=== PATIENT | female | born 1945 | race Asian ===

== ENCOUNTER 2018-03-06 00:32 | Emergency (ER) | payer MEDICARE, OTHER, SELFPAY ==
[2018-03-06 00:44] VITALS: BP 132/86; PULSE 61; RESP 18; TEMP 36.8; O2SAT 100
--- NOTE | 2018-03-06 00:49 | ED.ABDPAIN ---
HPI - Abdominal Pain General Chief Complaint: Abdominal Pain Stated Complaint: ABDOMINAL PAIN Time Seen by Provider: 03/06/18 00:41 Source: patient Mode of arrival: ambulatory Limitations: no limitations History of Present Illness HPI narrative: 72-year-old female here for evaluation of left lower quadrant abdominal pain. Patient states that she has had this pain for approximately [address] scan ordered by her primary doctor earlier this year for this pain. She states that she was told that ???everything was okay ???with regard to the CT scan. She states that she has seen a GI provider in the past for this pain. She states that she was told by this GI provider that she should be on a laxative. She states that she was on MiraLax for a while and her symptoms improved but then she stopped the MiraLax and now the symptoms are back. Related Data Home Medications Medication Instructions Recorded Confirmed amitriptyline 25 mg PO HS #0 09/03/16 calcium citrate-vitamin D3 1 tab PO #0 09/03/16 [Citracal + D Petites] cetirizine 10 mg PO QDAYP PRN #0 09/03/16 fluticasone [Flonase Allergy 1 spray INTRANASAL QDAY #0 09/03/16 Relief] levothyroxine 25 mcg PO QAM #0 09/03/16 losartan 50 mg PO QDAY #0 09/03/16 metoprolol tartrate 50 mg PO BID #0 09/03/16 simvastatin 20 mg PO HS #0 09/03/16 Allergies Allergy/AdvReac Type Severity Reaction Status Date / Time acetaminophen Allergy Unknown Verified 03/06/18 00:47 [From DARVOCET-N] propoxyphene Allergy Unknown Verified 03/06/18 00:47 [From DARVOCET-N] Review of Systems Constitutional Denies chills, Denies fever(s), Denies lethargy and Denies weakness Cardiovascular Denies chest pain, Denies irregular heart rhythm, Denies lightheadedness, Denies palpitations, Denies dyspnea, Denies dyspnea on exertion and Denies orthopnea Respiratory Denies cough, Denies dyspnea, Denies dyspnea on exertion and Denies wheezing Gastrointestinal Gastrointestinal: Reports abdominal pain, Reports belching, Denies melena, Reports bloating, Reports change in bowel habits, Denies change in stool character, Reports constipation, Reports heartburn, Denies diarrhea, Denies nausea and Denies vomiting Genitourinary Denies hematuria, Denies flank pain, Denies urinary incontinence and Denies urinary urgency Integumentary/Breasts Denies pruritus, Denies erythema, Denies rash and Denies wounds Neurologic Denies weakness Endocrine Denies palpitations Hematologic/Lymphatic Denies easy bruising Allergic/Immunologic Denies wheezing Exam Const General: cooperative and well developed Nutritional Appearance: well nourished Orientation: alert, awake, oriented x3 and not confused Chest Chest: normal inspection of the chest Resp Effort & Inspection: normal respiratory effort, able to speak in complete sentences, no respiratory distress and no use of accessory muscles Auscultation: clear to auscultation bilaterally, no rales, no rhonchi and no wheezes Cardio Rate: regular rate Rhythm: regular rhythm Heart Sounds: no click, no gallops, no murmurs and no rubs Pulses: normal peripheral pulses GI Inspection: normal to inspection and non-distended Palpation: soft, no hepatosplenomegaly, No firm, No guarding, No pulsatile mass and No tender Skin General: no rashes or lesions noted, No jaundice and No petechiae MDM - Abdominal Pain MDM Narrative Medical decision making narrative: I reviewed the patient's CT scan from December 11, 2017. She states that she had this scan for the evaluation of her presenting abdominal pain today. The CT scan shows a thickening of the gastric antrum also shows diverticulosis without diverticulitis and no evidence of appendicitis. After long discussion with the patient she stated that she did get better with MiraLax in the past. She states that she feels like she is constipated. She states she is drinking ???a bunch??? of water at home but then only has small bowel movements. She states that she has had to change her diet recently secondary to the amount of ???gas??? that she has been getting. She is currently on omeprazole. Initially she thought that this was a laxative. We discussed this medication and would was used for. After my evaluation with her. Reviewing her prior CT scan, and the long discussion we had will hold on further workup for now. We discussed MiraLax and its use. I recommended to her that since MiraLax seem to improve her symptoms in the past that she should go back on this medication. We did discuss that it could potentially cause diarrhea and if this happened that she could just back off on its use until she felt like she was constipated again and then start the medication again. Informed her that she needed to follow up with her primary care doctor. She expressed understanding. We discussed return precautions. She expressed agreement with plan Course Last Vital Signs Temp 98.2 F 03/06/18 00:44 Pulse 61 03/06/18 00:44 Resp 18 03/06/18 00:44 BP 132/86 H 03/06/18 00:44 Pulse Ox 100 03/06/18 00:44 Discharge Plan Departure Patient Disposition: Home, Self-Care Clinical Impression: Abdominal pain, Constipation Instructions: Constipation (Alternative Therapy), Constipation, DI for Abdominal Pain-Adult Activity Restrictions/Additional Instructions: I recommend that you start taking the MiraLax again like we discussed. Call your primary care doctor for a follow-up. Return to the emergency department for any new or worsening symptoms Prescriptions: No Action metoprolol tartrate 50 MG tablet 50 mg PO BID Qty: 0 RF: 0 cetirizine 10 MG tablet 10 mg PO QDAYP PRNQty: 0 RF: 0 levothyroxine 25 MCG tablet 25 mcg PO QAM Qty: 0 RF: 0 amitriptyline 25 MG tablet 25 mg PO HS Qty: 0 RF: 0 simvastatin 20 MG tablet 20 mg PO HS Qty: 0 RF: 0 fluticasone [Flonase Allergy Relief] 9.9 ML spray,suspension 1 spray Intranasal QDAY Qty: 0 RF: 0 losartan 50 MG tablet 50 mg PO QDAY Qty: 0 RF: 0 calcium citrate-vitamin D3 [Citracal + D Petites] 950 MG/250 IU tablet 1 tab PO Qty: 0 RF: 0
== END 2018-03-06 01:25 | disposition home or self-care (01) ==
PROVIDERS: Emergency Provider Emergency Medicine
DX: R10.9 Unspecified abdominal pain (principal); K59.00 Constipation, unspecified
CPT/HCPCS: 99282

== ENCOUNTER → 2020-04-06 10:45 | Outpatient (CLI) | payer MEDICARE, OTHER, SELFPAY ==
--- NOTE | 2020-04-06 10:50 | DI.RAD.S_ITS ---
PROCEDURE: XR KNEE RT 3V INDICATIONS: Progressive right knee pain with swelling TECHNIQUE: 3 views of the knee were acquired. COMPARISON: None. FINDINGS: Bones: No fractures or dislocations. No suspicious bony lesions. Minimal to mild medial and lateral compartment narrowing, mild to moderate patellofemoral compartment narrowing. Periventricular osteophytes are present. No erosions. Soft tissues: Mild joint effusion. No suspicious soft tissue calcifications. IMPRESSION: Mild effusion with tricompartmental degenerative changes suggestive osteoarthritis. Dictated by: Tara Finney M.D. on 04/06/2020 at 16:44 Approved by: Tara Finney M.D. on 04/06/2020 at 16:45
[2020-04-06 11:59] LABS: Hemoglobin A1C% w Est Avg Glu 6.5 % (4.0-6.0)
[2020-04-06 12:24] LABS: Alanine Aminotransferase 41 IU/L (<35); Albumin 4.6 g/dL (3.5-5.0); Albumin Globulin Ratio 1.4 (1.0-2.8); Alkaline Phosphatase 84 U/L (38-126); Aspartate Aminotransferase 39 IU/L (14-36); BUN Creatinine Ratio 21.1 (6-22); Bilirubin Total 1.1 mg/dL (0.2-1.3); Blood Urea Nitrogen 16 mg/dL (7-17); Calcium 10.1 mg/dL (8.4-10.2); Carbon Dioxide 28 mmol/L (22-32); Chloride 101 mmol/L (98-107); Estimated Glomerular Filt Rate > 60.0 mL/min (>60); Globulin 3.2 g/dL (1.7-4.1); Glucose 109 mg/dL (80-110); HEMOLYSIS < 15 (0-50); Potassium 4.4 mmol/L (3.4-5.1); Sodium 138 mmol/L (137-145); Total Protein 7.8 g/dL (6.3-8.2); Uric Acid 6.4 mg/dL (2.5-6.2)
[2020-04-06 12:56] LABS: TSH w/ Reflex to FT4 2.94 uIU/mL (0.47-4.68)
== END ==
PROVIDERS: PCP Family Medicine; Referring Provider Family Medicine; Visit Provider Family Medicine
DX: M25.561 Pain in right knee (principal); E11.9 Type 2 diabetes mellitus without complications
CPT/HCPCS: 36415; 73562; 80053; 83036; 84443; 84550

== ENCOUNTER → 2020-10-18 09:08 | Outpatient (CLI) | payer MEDICARE, OTHER, SELFPAY ==
--- NOTE | 2020-10-18 09:10 | DI.MG.S_ITS ---
BILATERAL DIGITAL SCREENING MAMMOGRAM 3D/2D WITH CAD: 10/18/2020 CLINICAL: Routine screening. Comparison is made to exams dated: 04/30/2016 mammogram, 04/19/2014 mammogram, and 07/02/2012 mammogram - outside location. The tissue of both breasts is predominantly fatty. Current study was also evaluated with a Computer Aided Detection (CAD) system. No significant masses, calcifications, or other findings are seen in either breast. There has been no significant interval change. IMPRESSION: NEGATIVE There is no mammographic evidence of malignancy. A 1 year screening mammogram is recommended. This exam was interpreted at Station ID: [id number]. NOTE: For mammograms, a report in lay terms will be sent to the patient. Approximately 15% of breast malignancies will not be visualized mammographically. In the management of a palpable breast mass, a negative mammogram must not discourage biopsy of a clinically suspicious lesion. Electronically Signed By: Luis Alberto Garcia acr/jarrod:10/18/2020 10:33:44 letter sent: Normal Exam ACR BI-RADS Category 1: Negative [id number]
[2020-10-18 09:50] LABS: Hemoglobin A1C% w Est Avg Glu 6.5 % (4.0-6.0)
[2020-10-18 10:00] LABS: Alanine Aminotransferase 44 IU/L (<35); Albumin 4.7 g/dL (3.5-5.0); Albumin Globulin Ratio 1.5 (1.0-2.8); Alkaline Phosphatase 80 U/L (38-126); Aspartate Aminotransferase 45 IU/L (14-36); BUN Creatinine Ratio 19.7 (6-22); Bilirubin Total 0.7 mg/dL (0.2-1.3); Blood Urea Nitrogen 15 mg/dL (7-17); Calcium 10.1 mg/dL (8.4-10.2); Carbon Dioxide 32 mmol/L (22-32); Chloride 102 mmol/L (98-107); Cholesterol 197 mg/dL (140-199); Estimated Glomerular Filt Rate > 60.0 mL/min (>60); Globulin 3.1 g/dL (1.7-4.1); Glucose 139 mg/dL (80-110); HDL Cholesterol 48 mg/dL (40-60); HEMOLYSIS < 15 (0-50); LDL Cholesterol Calculated 99 mg/dL (<100); Potassium 4.1 mmol/L (3.4-5.1); Sodium 139 mmol/L (137-145); Total Protein 7.8 g/dL (6.3-8.2); Triglycerides 250 mg/dL (35-150)
== END ==
PROVIDERS: PCP Family Medicine; Referring Provider Family Medicine; Visit Provider Family Medicine
DX: Z12.31 Encounter for screening mammogram for malignant neoplasm of breast (principal); Z13.29 Encounter for screening for other suspected endocrine disorder; C50.919 Malignant neoplasm of unspecified site of unspecified female breast; E11.9 Type 2 diabetes mellitus without complications; E78.5 Hyperlipidemia, unspecified; I27.20 Pulmonary hypertension, unspecified; I10 Essential (primary) hypertension
CPT/HCPCS: 36415; 77063; 77067; 80053; 80061; 83036; 84443

== ENCOUNTER 2021-05-25 21:54 | Emergency (ER) | payer MEDICARE, OTHER, SELFPAY ==
[2021-05-25] VITALS (7 sets, daily range): BP systolic 148–163; BP diastolic 61–99; PULSE 67–75; RESP 16; TEMP 37.1; O2SAT 96–99; BMI 29.2
[2021-05-25 22:19] LABS: Add Manual Diff / Slide Review NO; Basophils Absolute Auto 0 /uL (0-100); Basophils Percent Auto 0.3 % (0-2); Eosinophils Absolute Auto 100 /uL (0-450); Eosinophils Percent Auto 0.9 % (2-4); Hematocrit 43.2 % (36-46); Hemoglobin 14.4 g/dL (12.0-16.0); Lymphocytes Absolute Auto 1800 /uL (1100-4500); Lymphocytes Percent Auto 16.2 % (25-40); Mean Corpuscular HGB Conc 33.3 % (30-36); Mean Corpuscular Hemoglobin 30.1 PG (26-34); Mean Corpuscular Volume 90.2 fL (80-100); Monocytes Absolute Auto 800 /uL (0-900); Monocytes Percent Auto 7.6 % (3-14); Neutrophils Absolute Auto 8200 /uL (1500-7000); Platelet Count 238 X10^3/uL (150-400); Red Blood Cell Count 4.79 X10^6/uL (4.0-5.2); Red Cell Distribution Width 13.4 % (11.6-14.8); White Blood Cell Count 10.9 X10^3/uL (4.5-11.0)
--- NOTE | 2021-05-25 22:21 | DI.RAD.S_ITS ---
PROCEDURE: XR ACUTE ABDOMEN SERIES INDICATIONS: abdominal pain TECHNIQUE: One view chest and two views of the abdomen were acquired. COMPARISON: None. FINDINGS: Surgical changes and devices: None. Chest: Lungs are clear. Heart size is normal. No pleural effusions. No pneumoperitoneum. Abdomen: Bowel gas pattern is normal. No suspicious calcifications. Visualized solid organ contours appear normal. Bones: No suspicious bony lesions. IMPRESSION: No acute process. Concordant with preliminary interpretation. Dictated by: Anat De Anda M.D. on 05/26/2021 at 7:32 Approved by: Anat De Anda M.D. on 05/26/2021 at 7:33
[2021-05-25 22:22] LABS: Prothrombin Time 11.3 SECONDS (10.1-12.7)
[2021-05-25 22:24] LABS: PTT Partial Thromboplastin Tim 31 SECONDS (26.4-36.2)
[2021-05-25 22:25] LABS: Alanine Aminotransferase 27 IU/L (<35); Albumin 4.2 g/dL (3.5-5.0); Albumin Globulin Ratio 1.4 (1.0-2.8); Alkaline Phosphatase 71 U/L (38-126); Aspartate Aminotransferase 31 IU/L (14-36); BUN Creatinine Ratio 14.8 (6-22); Bilirubin Total 1.2 mg/dL (0.2-1.3); Blood Urea Nitrogen 12 mg/dL (7-17); Calcium 9.5 mg/dL (8.4-10.2); Carbon Dioxide 28 mmol/L (22-32); Chloride 101 mmol/L (98-107); Estimated Glomerular Filt Rate > 60.0 mL/min (>60); Glucose 196 mg/dL (80-110); HEMOLYSIS 23 (0-50); Lipase 40 U/L (23-300); Potassium 3.7 mmol/L (3.4-5.1); Sodium 138 mmol/L (137-145); Total Protein 7.2 g/dL (6.3-8.2)
--- NOTE | 2021-05-25 23:18 | ED_ITS ---
HPI - Abdominal Pain General Chief Complaint: Abdominal Pain Stated Complaint: ABD PAIN X3 DAYS Time Seen by Provider: 05/25/21 22:04 Source: patient and family Mode of arrival: Wheelchair Limitations: no limitations History of Present Illness HPI narrative: 75-year-old woman with a history of hypertension, hyperlipidemia, diabetes, gout, seasonal allergies. She has had her appendix removed but still has her gallbladder in place. She presents with diffuse abdominal pain she reports no flatus for the last 3 days of feeling that she has got quite a bit of gas in the upper portion of her abdomen. She notes that she did have 2 bowel movements this morning that did not relieve her symptoms. She denies vomiting or diarrhea. No fevers, cough, chest pain, dyspnea, orthopnea, change in neurologic status. Related Data Home Medications Medication Instructions Recorded Confirmed calcium citrate 200 mg 1 tab PO #0 09/03/16 11/07/20 calcium-vitamin D3 6.25 mcg (250 unit) tablet (Citracal-D3 Petites) Previous Rx's Medication Instructions Recorded amitriptyline 25 mg tablet 25 mg PO HS #90 tab 04/06/20 esomeprazole magnesium 20 mg 20 mg PO DAILY #90 cap 04/06/20 capsule,delayed release (Nexium) fluticasone propionate 50 1 spray INTRANASAL QDAY #15.8 ml 04/06/20 mcg/actuation nasal spray,suspension (Flonase Allergy Relief) levothyroxine 25 mcg tablet 25 mcg PO QAM #90 tab 04/06/20 terbinafine HCl 250 mg tablet 250 mg PO DAILY #90 tab 04/06/20 allopurinol 100 mg tablet 100 mg PO DAILY #90 tab 07/13/20 colchicine 0.6 mg tablet 0.6 mg PO DAILY #20 tab 10/15/20 metoprolol succinate 100 mg 100 mg PO DAILY #90 tab 11/21/20 tablet,extended release 24 hr cetirizine 10 mg tablet 10 mg PO DAILY PRN #90 tab 12/12/20 losartan 50 mg tablet See Rx Instructions .ROUTE 12/14/20 .COMPLEX #90 tab metformin 500 mg tablet,extended 500 mg PO DAILY #90 tab 02/06/21 release 24 hr rosuvastatin 20 mg tablet See Rx Instructions .ROUTE 02/20/21 .COMPLEX #90 tab Allergies Allergy/AdvReac Type Severity Reaction Status Date / Time acetaminophen Allergy Intermediate Rash Verified 07/13/20 10:10 [From DARVOCET-N] propoxyphene Allergy Intermediate Rash Verified 07/13/20 10:10 [From DARVOCET-N] Review of Systems Review of Systems Narrative: Remainder of complete review of systems is otherwise unremarkable except for that included in the HPI. Patient History Medical History Abnormal Pap smear of cervix Chronic back pain Fungal toenail infection GERD (gastroesophageal reflux disease) Gout Hyperlipidemia Hypertension Hypothyroidism Lung cancer (~1995) Osteoarthritis Peptic ulcer disease Pulmonary hypertension Right knee pain Sleep apnea Type 2 diabetes mellitus Surgical History Anesthesia History of appendectomy History of section History of heart bypass surgery History of hysterectomy History of removal of cyst Hx of LASIK Family History Father Cancer Mother Hypertension Stroke Brother Hypertension Brother History of emphysema Sister Cancer Family/Other Hypertension Mental health problem Social History Smoking Status: Former smoker Tobacco: How many years used: 10 quit status: has quit before alcohol intake: current substance use type: marijuana Smoking Status: Former smoker alcohol intake frequency: 0-2 drinks per day Substance Use Type: does not use Exam Narrative Exam Narrative: General: Older-appearing woman in no acute distress. Able to give a complete history. HEENT: Moist mucous membranes, normal sclera with reactive pupils, Respiratory: Lungs are clear to auscultation, no wheezing no rales no rhonchi. Full and symmetrical air movement Cardiac: Regular rate and rhythm no murmurs no bruits Abdomen: Soft, mildly distended and mild tenderness in the upper quadrants without specific tenderness over the gallbladder, good bowel tones, no flank p ain Skin: Warm and dry, no rashes Neurologic: Grossly neurologically intact with no obvious asymmetries or abnormalities Extremities: No trauma, well perfused Psych: Cooperative, fluent speech and appropriate eye contact Initial Vital Signs Initial Vital Signs: Vital Signs Temperature 98.8 F 05/25/21 22:10 Pulse Rate 75 05/25/21 22:10 Respiratory Rate 16 05/25/21 22:10 Blood Pressure 163/99 H 07/31/21 22:10 Pulse Oximetry 98 05/25/21 22:10 Course Orders Ordered: ED Orders 05/25/21 22:06 Complete Blood Count AUTO DIFF Stat Comprehensive Metabolic Panel Stat Lipase Stat Partial Thromboplastin Time Stat Prothrombin Time INR Stat 05/25/21 22:11 EKG-12 Lead Stat 05/25/21 22:21 XR acute abdomen series Stat 05/25/21 23:21 CT abdomen pelvis w con Stat 05/25/21 23:28 Urinalysis and Microscopic Stat Discontinued Medications Magnesium Citrate (Magnesium Citrate 300 Ml Solution) 300 ml PO NOW ONE Stop: 05/26/21 00:34 Last Admin: 05/26/21 00:40 Dose: 300 ml Documented by: SATISH Vital Signs Vital signs: Vital Signs - 8 hr 05/25/21 22:10 05/25/21 22:15 05/25/21 22:37 Temperature 98.8 F Pulse Rate 75 70 72 Respiratory Rate 16 Blood Pressure 163/99 H Pulse Oximetry 98 99 97 05/25/21 23:00 05/25/21 23:29 05/25/21 23:30 Temperature Pulse Rate 67 70 70 Respiratory Rate Blood Pressure 148/74 H Pulse Oximetry 96 98 99 05/25/21 23:39 05/26/21 00:00 05/26/21 00:30 Temperature Pulse Rate 72 64 66 Respiratory Rate Blood Pressure 161/61 H 144/66 H Pulse Oximetry 99 98 97 MDM - Abdominal Pain Lab Data Result diagrams: 05/25/21 22:06 05/25/21 22:06 Labs: Lab Results 05/25/21 05/25/21 05/25/21 Range/Units 22:06 22:06 22:06 WBC 10.9 (4.5-11.0) X10^3/uL RBC 4.79 (4.0-5.2) X10^6/uL Hgb 14.4 (12.0-16.0) g/dL Hct 43.2 (36-46) % MCV 90.2 (80-100) fL MCH 30.1 (26-34) PG MCHC 33.3 (30-36) % RDW 13.4 (11.6-14.8) % Plt Count 238 (150-400) X10^3/uL Neut % (Auto) 75.0 (50-75) % Lymph % (Auto) 16.2 L (25-40) % [place] % (Auto) 7.6 (3-14) % Eos % (Auto) 0.9 L (2-4) % Baso % (Auto) 0.3 (0-2) % Neut # (Auto) 8200 H (2128-2659) /uL Lymph # (Auto) 1800 (0100-9248) /uL [place] # (Auto) 800 (0-900) /uL Eos # (Auto) 100 (0-450) /uL Baso # (Auto) 0 (0-100) /uL PT 11.3 (10.1-12.7) SECONDS INR 1.0 (0.9-1.3) APTT 31 (26.4-36.2) SECONDS Sodium 138 (137-145) mmol/L Potassium 3.7 (3.4-5.1) mmol/L Chloride 101 (98-107) mmol/L Carbon Dioxide 28 (22-32) mmol/L BUN 12 (7-17) mg/dL Creatinine 0.81 (0.52-1.04) mg/dL Estimated GFR > 60.0 (>60) mL/min BUN/Creatinine Ratio 14.8 (6-22) Glucose 196 H (80-110) mg/dL Calcium 9.5 (8.4-10.2) mg/dL Total Bilirubin 1.2 (0.2-1.3) mg/dL AST 31 (14-36) IU/L ALT 27 (<35) IU/L Alkaline Phosphatase 71 (38-126) U/L Total Protein 7.2 (6.3-8.2) g/dL Albumin 4.2 (3.5-5.0) g/dL Globulin 3.0 (1.7-4.1) g/dL Albumin/Globulin Ratio 1.4 (1.0-2.8) Lipase 40 (23-300) U/L Urine Color Urine Appearance Urine pH (4.5-8.0) Ur Specific [place] (1.000-1.035) Urine Protein (Negative) Urine Glucose (UA) (Negative) g/dL Urine Ketones (NEGATIVE) Urine Occult Blood (Negative) Urine Nitrate (Negative) Urine Bilirubin (NEGATIVE) Urine Urobilinogen (0.2) E.U./dL Ur Leukocyte Esterase (NEGATIVE) Urine RBC (0-5/HPF) Urine WBC (0-5/HPF) Urine Bacteria (None) Ur Culture Indicated? 05/25/21 Range/Units 23:28 WBC (4.5-11.0) X10^3/uL RBC (4.0-5.2) X10^6/uL Hgb (12.0-16.0) g/dL Hct (36-46) % MCV (80-100) fL MCH (26-34) PG MCHC (30-36) % RDW (11.6-14.8) % Plt Count (150-400) X10^3/uL Neut % (Auto) (50-75) % Lymph % (Auto) (25-40) % [place] % (Auto) (3-14) % Eos % (Auto) (2-4) % Baso % (Auto) (0-2) % Neut # (Auto) (8500-0182) /uL Lymph # (Auto) (6115-0477) /uL [place] # (Auto) (0-900) /uL Eos # (Auto) (0-450) /uL Baso # (Auto) (0-100) /uL PT (10.1-12.7) SECONDS INR (0.9-1.3) APTT (26.4-36.2) SECONDS Sodium (137-145) mmol/L Potassium (3.4-5.1) mmol/L Chloride (98-107) mmol/L Carbon Dioxide (22-32) mmol/L BUN (7-17) mg/dL Creatinine (0.52-1.04) mg/dL Estimated GFR (>60) mL/min BUN/Creatinine Ratio (6-22) Glucose (80-110) mg/dL Calcium (8.4-10.2) mg/dL Total Bilirubin (0.2-1.3) mg/dL AST (14-36) IU/L ALT (<35) IU/L Alkaline Phosphatase (38-126) U/L Total Protein (6.3-8.2) g/dL Albumin (3.5-5.0) g/dL Globulin (1.7-4.1) g/dL Albumin/Globulin Ratio (1.0-2.8) Lipase (23-300) U/L Urine Color Yellow Urine Appearance Clear Urine pH 6.0 (4.5-8.0) Ur Specific [place] <=1.005 (1.000-1.035) Urine Protein Negative (Negative) Urine Glucose (UA) Negative (Negative) g/dL Urine Ketones Negative (NEGATIVE) Urine Occult Blood Trace-intact (Negative) Urine Nitrate Negative (Negative) Urine Bilirubin Negative (NEGATIVE) Urine Urobilinogen 0.2 (0.2) E.U./dL Ur Leukocyte Esterase Trace H (NEGATIVE) Urine RBC 0-1/hpf (0-5/HPF) Urine WBC 0-1/hpf (0-5/HPF) Urine Bacteria None seen (None) Ur Culture Indicated? Cult not indicated Imaging Data X-ray acute abdominal series: My Impression: Normal chest, nonspecific bowel gas pattern, no small-bowel obstruction Radiologist's Impression: Bowel gas scattered in abdomen or pelvis within normal limits no distension mild fecal retention. No definitive acute cardiopulmonary pathology. Nidal Dabbasi CT scan - abdomen/pelvis: Radiologist's Impression: Impression Suspect acute cholecystitis. No stones evident on CT. Right upper quadrant ult rasound can be performed to confirm cholelithiasis acute cholecystitis Kaitlynn Mario MD MDM Narrative Medical decision making narrative: Woman presents with abdominal pain that has continued over the last number of days. Lab work is reassuring with no evidence of acute infection pancreatitis. Acute abdominal series does not suggest significant cardiopulmonary abnormalities, no pneumothorax. CT scan of the abdomen is equally reassuring with no life-threatening pathology including cholecystitis, pancreatitis, bowel or ureter obstructions, colitis or evidence of ischemic colitis. Unfortunately there is not an obvious explanation for her abdominal pain. In reviewing findings with patient she does note that she has had a lifelong problem with constipation and wonders if using daily prune juice and eating tamarins is safe. I highly encouraged increased fiber and using food to help her body function as efficiently as possible. . At this point with no life-threatening issues identified, will suggest that s he try magnesium citrate to completely clean her bowels and see if this helps alleviate her pain. If it does then problems are improved and if not then she will need to follow-up with her primary care physician to continue her workup. She is safe for home discharge at this time 1:51 am [address]ology report from CT scan is received. Patient was discharged at 12:48 a.m. In reviewing radiology studies, I had accidentally interpreted the read from the acute abdominal series as though it was the CT scan read. Patient was discharged home as above. After the actual CT scan is reviewed patient is michelle gayle. She still is not having specific right upper quadrant pain. With her exam, she did not have specific right upper quadrant tenderness (Tan sign) and she has a normal white blood cell count and LFTs. At time of discharge I was not suspicious for acute cholecystitis. The CT read is shared with the patient. She would still like to try the magnesium citrate but if her pain continues after that she will return to the emergency department and we can proceed with rechecking blood work and follow-up with an abdominal ultrasound to see if this is, in fact, acute cholecystitis. Discharge Plan Departure Patient Disposition: Home Clinical Impression: Constipation Qualifiers: Constipation type: unspecified constipation type Qualified Code(s): K59.00 - Constipation, unspecified Abdominal pain Qualifiers: Abdominal location: generalized Qualified Code(s): R10.84 - Generalized abdominal pain Instructions: DI for Constipation Activity Restrictions/Additional Instructions: Thank you for coming in today Your workup was very reassuring. There are no acute medical problems to explain the abdominal pain that you are experiencing. You do not have any masses, tumors, obstructions or abdominal infections. You do have quite a bit of stool throughout your colon and may be that you need to clean all of this stool out and get your colon Functioning a bit more efficiently. I am sending you home with a bottle of magnesium citrate. Please drink the entire bottle tomorrow and expect to have quite a bit of stool following that. If you are still having pain and symptoms after that please follow-up with your primary care physician. I wish you the best Prescriptions: No Action calcium citrate-vitamin D3 [Citracal-D3 Petites] 950 MG/250 IU tablet 1 tab PO Qty: 0 RF: 0 colchicine 0.6 mg tablet 0.6 mg PO DAILY Qty: 20 RF: 1 metoprolol succinate 100 mg tablet extended release 24 hr 100 mg PO DAILY Qty: 90 RF: 2 cetirizine 10 mg tablet 10 mg PO DAILY PRN (Reason: allergy symptoms) Qty: 90 RF: 4 losartan 50 mg tablet See Rx Instructions .ROUTE .COMPLEX Qty: 90 RF: 2 metformin 500 mg tablet extended release 24 hr 500 mg PO DAILY Qty: 90 RF: 2 rosuvastatin 20 mg tablet See Rx Instructions .ROUTE .COMPLEX Qty: 90 RF: 1 amitriptyline 25 mg tablet 25 mg PO HS Qty: 90 RF: 1 fluticasone propionate [Flonase Allergy Relief] 50 mcg/actuation spray,ayla pension 1 spray Intranasal QDAY Qty: 15.8 RF: 1 levothyroxine 25 mcg tablet 25 mcg PO QAM Qty: 90 RF: 1 esomeprazole magnesium [Nexium] 20 mg capsule,delayed release(DR/EC) 20 mg PO DAILY Qty: 90 RF: 1 terbinafine HCl 250 mg tablet 250 mg PO DAILY Qty: 90 RF: 1 allopurinol 100 mg tablet 100 mg PO DAILY Qty: 90 RF: 3 Referrals: Marquis Bennett, [Primary Care Provider] -
--- NOTE | 2021-05-25 23:21 | DI.CT.S_ITS ---
PROCEDURE: CT ABDOMEN PELVIS W CON INDICATIONS: abdominal pain TECHNIQUE: After the administration of intravenous contrast, axial sections acquired from the lung bases to the pubic symphysis. Coronal and sagittal reformats were performed. For radiation dose reduction, the following was used: automated exposure control, adjustment of mA and/or kV according to patient size. COMPARISON: [facility], CT, ABDOMEN/PELVIS WITH CONTRAST, 12/11/2017, 12:39. FINDINGS: Image quality: Excellent. Lung bases: Unremarkable. Heart: No significant findings. ABDOMEN: Liver: Unremarkable. Gallbladder: Gallbladder wall is moderately thickened and there is mild surrounding fat stranding, new since the prior examination. Biliary ducts: Unremarkable. Pancreas: Unremarkable. Spleen: Unremarkable. Adrenal Glands: Unremarkable. Kidneys and Ureters: Unremarkable. Stomach and Bowel: Stomach, small bowel loops, and colon are unremarkable. Diverticulosis of the descending and sigmoid colon. No evidence of acute diverticulitis. Appendix is not seen. No evidence of appendicitis. Peritoneum: No abnormal intraperitoneal fluid. No free air. Ventral Wall: No hernias. Abdominal Nodes: No retroperitoneal or mesenteric adenopathy by size criteria. Vessels: Aorta and inferior vena cava are normal in size. PELVIS: Pelvic Organs: Unremarkable. Bladder: Unremarkable. Pelvic Nodes: No enlarged lymph nodes. Miscellaneous: No hernias are seen. Bones: Unremarkable. IMPRESSION: 1. Acute cholecystitis. 2. Concordant with preliminary interpretation. Dictated by: Anat De Anda M.D. on 05/26/2021 at 7:39 Approved by: Anat De Anda M.D. on 05/26/2021 at 7:41
[2021-05-25 23:38] LABS: Bacteria Urine None Seen
[2021-05-25 23:40] LABS: Appearance Urine UA CLEAR; Bilirubin Urine UA NEGATIVE (NEGATIVE); Color Urine UA YELLOW; Glucose Urine UA NEGATIVE (Negative); Ketones Urine UA NEGATIVE (NEGATIVE); Leukocyte Esterase Urine UA TRACE (NEGATIVE); Nitrite Urine UA NEGATIVE (Negative); Occult Blood Urine UA TRACE-INTACT (Negative); Protein Urine UA NEGATIVE (Negative); Specific Gravity Urine UA <=1.005 (1.000-1.035); Urobilinogen Urine UA 0.2 E.U./dL (0.2)
[2021-05-25 23:56] LABS: Culture Indicated Urine Cult Not Indicated; RBC Urine 0-1/HPF (0-5/HPF); WBC Urine 0-1/HPF (0-5/HPF)
[2021-05-26] VITALS: BP 144/66; PULSE 64; O2SAT 98
[2021-05-26 00:30] VITALS: PULSE 66; O2SAT 97
[2021-05-26] MEDS: MAGNESIUM CITRATE 300 ML SOLUTION PO (00:40)
== END 2021-05-26 00:48 | disposition home or self-care (01) ==
PROVIDERS: Emergency Provider Emergency Medicine; PCP Family Medicine
DX: K59.00 Constipation, unspecified (principal); R10.84 Generalized abdominal pain
CPT/HCPCS: 36415; 74022; 74177; 80053; 81001; 83690; 85025; 85610; 85730; 93005; 99284; Q9967

== ENCOUNTER 2021-05-27 09:22 | Emergency (ER) | payer MEDICARE, OTHER, SELFPAY ==
[2021-05-27 10:15] VITALS: BP 152/74; PULSE 72; RESP 14; TEMP 36.2; O2SAT 99; BMI 29.2
--- NOTE | 2021-05-27 10:20 | DI.US.S_ITS ---
PROCEDURE: US ABDOMEN LIMITED INDICATIONS: RIGHT UPPER QUADRANT PAIN TECHNIQUE: Real-time focused scanning was performed of the abdomen, with image documentation. COMPARISON: [facility], CT, CT ABDOMEN PELVIS W CON, 05/25/2021, 23:29. FINDINGS: On the previous CT, there was gallbladder wall thickening and gallbladder wall edema, highly consistent with acute cholecystitis. By CT, the gallbladder wall measured approximately 8 mm. On the current ultrasound, the gallbladder wall is no longer edematous in appearance. It is mildly thickened, measuring up to 3.5 mm in thickness. No stones. No pain on examination. Liver echo pattern is mildly increased, and somewhat heterogeneous. Visualized portions of the pancreas are unremarkable. IMPRESSION: The constellation of findings, when viewed in conjunction to the previous CT, suggests improving acalculous cholecystitis. Dictated by: Jong Patterson M.D. on 05/27/2021 at 11:34 Approved by: Jong Patterson M.D. on 05/27/2021 at 11:37
[2021-05-27 10:38] LABS: Add Manual Diff / Slide Review NO; Basophils Absolute Auto 100 /uL (0-100); Basophils Percent Auto 0.9 % (0-2); Eosinophils Absolute Auto 100 /uL (0-450); Eosinophils Percent Auto 1.7 % (2-4); Hematocrit 44.8 % (36-46); Hemoglobin 15.1 g/dL (12.0-16.0); Lymphocytes Absolute Auto 2000 /uL (1100-4500); Mean Corpuscular HGB Conc 33.7 % (30-36); Mean Corpuscular Hemoglobin 30.5 PG (26-34); Mean Corpuscular Volume 90.5 fL (80-100); Monocytes Absolute Auto 700 /uL (0-900); Monocytes Percent Auto 9.6 % (3-14); Neutrophils Absolute Auto 4400 /uL (1500-7000); Neutrophils Percent Auto 59.8 % (50-75); Platelet Count 243 X10^3/uL (150-400); Red Blood Cell Count 4.95 X10^6/uL (4.0-5.2); Red Cell Distribution Width 13.6 % (11.6-14.8); White Blood Cell Count 7.3 X10^3/uL (4.5-11.0)
[2021-05-27 10:54] LABS: Alanine Aminotransferase 31 IU/L (<35); Albumin 4.6 g/dL (3.5-5.0); Albumin Globulin Ratio 1.4 (1.0-2.8); Alkaline Phosphatase 78 U/L (38-126); Aspartate Aminotransferase 43 IU/L (14-36); Bilirubin Total 1.3 mg/dL (0.2-1.3); Blood Urea Nitrogen 13 mg/dL (7-17); Calcium 9.7 mg/dL (8.4-10.2); Carbon Dioxide 27 mmol/L (22-32); Chloride 104 mmol/L (98-107); Estimated Glomerular Filt Rate > 60.0 mL/min (>60); Globulin 3.3 g/dL (1.7-4.1); Glucose 133 mg/dL (80-110); HEMOLYSIS 49 (0-50); Lipase 30 U/L (23-300); Potassium 4.1 mmol/L (3.4-5.1); Sodium 139 mmol/L (137-145); Total Protein 7.9 g/dL (6.3-8.2)
[2021-05-27 13:41] LABS: Bacteria Urine None Seen; RBC Urine None Seen (0-5/HPF)
[2021-05-27 13:44] LABS: Appearance Urine UA CLEAR; Bilirubin Urine UA NEGATIVE (NEGATIVE); Color Urine UA YELLOW; Glucose Urine UA NEGATIVE (Negative); Ketones Urine UA NEGATIVE (NEGATIVE); Leukocyte Esterase Urine UA TRACE (NEGATIVE); Nitrite Urine UA NEGATIVE (Negative); Occult Blood Urine UA TRACE-LYSED (Negative); Protein Urine UA TRACE (Negative); Urobilinogen Urine UA 0.2 E.U./dL (0.2)
[2021-05-27 13:46] LABS: pH Urine UA 5.5 (4.5-8.0)
[2021-05-27 14:02] LABS: Culture Indicated Urine Cult Not Indicated; Mucus Urine 1+ (Negative); Squamous Epithelial Cell Urine 0-1 /HPF (0-5/HPF); Transitional Epi Cells Urine 0-1/HPF (0-5/HPF); WBC Urine 1-5/HPF (0-5/HPF)
--- NOTE | 2021-05-27 14:48 | ED_ITS ---
HPI - Abdominal Pain <Britney Oleary, REVENUE INTEGRITY ANALYST-BC - Last Filed: 05/27/21 18:35> General Chief Complaint: Abdominal Pain Stated Complaint: gall bladder issues, bloating, no improvement Time Seen by Provider: 05/27/21 14:03 Source: patient and family Mode of arrival: Ambulatory Limitations: no limitations History of Present Illness HPI narrative: The patient is a 75-year-old female former smoker with history of GERD, hypertension, breast CA, pulmonary hypertension and prediabetes who presents with her daughter Isa for chief complaint of continued right upper quadrant pain. She was seen and evaluated at this facility yesterday for a chief complaint of abdominal pain, not moving gas for 3 days. Her lab work was reassuring, imaging was reassuring at that time, the patient was discharged with magnesium citrate. After she was discharge, the patient CT report was received and was concerning for possible acute cholecystitis. The patient was contacted, but did not want to come back to the emergency department at that time. She wanted to see if the magnesium citrate would help her pain and decided that she would come back if it did not help. She drinker magnesium citrate, had multiple bowel movements but still had persistent right upper quadrant pain so she came back to the emergency department today. She states that she has had right upper quadrant pain since Thursday, denies any fevers nausea vomiting. She complains of chronic constipation and gas. She has been vaccinated events coronavirus with two [employer] vaccinations. Related Data Home Medications Medication Instructions Recorded Confirmed calcium citrate 200 mg 1 tab PO #0 09/03/16 11/07/20 calcium-vitamin D3 6.25 mcg (250 unit) tablet (Citracal-D3 Petites) Previous Rx's Medication Instructions Recorded amitriptyline 25 mg tablet 25 mg PO HS #90 tab 04/06/20 esomeprazole magnesium 20 mg 20 mg PO DAILY #90 cap 04/06/20 capsule,delayed release (Nexium) fluticasone propionate 50 1 spray INTRANASAL QDAY #15.8 ml 04/06/20 mcg/actuation nasal spray,suspension (Flonase Allergy Relief) levothyroxine 25 mcg tablet 25 mcg PO QAM #90 tab 04/06/20 terbinafine HCl 250 mg tablet 250 mg PO DAILY #90 tab 04/06/20 allopurinol 100 mg tablet 100 mg PO DAILY #90 tab 07/13/20 colchicine 0.6 mg tablet 0.6 mg PO DAILY #20 tab 10/15/20 metoprolol succinate 100 mg 100 mg PO DAILY #90 tab 11/21/20 tablet,extended release 24 hr cetirizine 10 mg tablet 10 mg PO DAILY PRN #90 tab 12/12/20 losartan 50 mg tablet See Rx Instructions .ROUTE 12/14/20 .COMPLEX #90 tab metformin 500 mg tablet,extended 500 mg PO DAILY #90 tab 02/06/21 release 24 hr rosuvastatin 20 mg tablet See Rx Instructions .ROUTE 02/20/21 .COMPLEX #90 tab amoxicillin 875 mg-potassium 1 tab PO BID #20 tab 05/27/21 clavulanate 125 mg tablet (Augmentin) hydrocodone 5 mg-acetaminophen 325 1 tab PO Q4-6H PRN #7 tab 05/27/21 mg tablet ondansetron 4 mg disintegrating 4 mg PO Q6H PRN #14 tab 05/27/21 tablet Allergies Allergy/AdvReac Type Severity Reaction Status Date / Time propoxyphene Allergy Intermediate Rash Verified 05/27/21 10:19 [From SPRING] Review of Systems <ALLIE Russ - Last Filed: 05/27/21 18:35> Review of Systems Narrative: GENERAL: Denies chills, fatigue, malaise, fever, sweats. HEENT: Denies sinus pain, ear pain, sore throat, difficulty swallowing, dizziness. RESPIRATORY: Denies dyspnea, cough, wheezing, hemoptysis, sputum. CARDIOVASCULAR: Denies chest pain, palpitations, orthopnea, edema, GASTROINTESTINAL: see HPI : Denies dysuria, frequency, incontinence, hematuria, urinary retention. MUSCULOSKELETAL: denies weakness, joint pain, or bony pain SKIN: Denies rash, skin lesions, or other NEUROLOGIC: Denies weakness, headache, numbness, change in speech, confusion, seizures, incoordination. PSYCHIATRIC: No concerning psychosocial issues. 12 point review of systems is negative except for those stated above Patient History <ALLIE Russ - Last Filed: 05/27/21 18:35> Medical History Abnormal Pap smear of cervix Chronic back pain Fungal toenail infection GERD (gastroesophageal reflux disease) Gout Hyperlipidemia Hypertension Hypothyroidism Lung cancer (~1995) Osteoarthritis Peptic ulcer disease Pulmonary hypertension Right knee pain Sleep apnea Type 2 diabetes mellitus Surgical History Anesthesia History of appendectomy History of section History of heart bypass surgery History of hysterectomy History of removal of cyst Hx of LASIK Family History Father Cancer Mother Hypertension Stroke Brother Hypertension Brother History of emphysema Sister Cancer Family/Other Hypertension Mental health problem Social History Smoking Status: Former smoker Tobacco: How many years used: 10 quit status: has quit before alcohol intake: current substance use type: marijuana Smoking Status: Former smoker alcohol intake frequency: 0-2 drinks per day Substance Use Type: does not use Exam <Britney ALEC OlearyP-BC - Last Filed: 05/27/21 18:35> Narrative Exam Narrative: GENERAL: This is a well-nourished, well-developed patient, in No acute distress lying on stretcher HEAD: Atraumatic. Normocephalic. No temporal or scalp tenderness. EYES: Pupils equal round and reactive. Extraocular motions intact. No scleral icterus. No injection or drainage. ENT: Nose without bleeding, purulent drainage or septal hematoma. Throat without erythema, tonsillar hypertrophy or exudate. Uvula midline. Airway patent. NECK: Trachea midline. No JVD or lymphadenopathy. Supple, nontender, no menin geal signs. CARDIOVASCULAR: Regular rate and rhythm without murmurs, gallops, or rubs. RESPIRATORY: Clear to auscultation. Breath sounds equal bilaterally. No wheezes, rales, or rhonchi. GASTROINTESTINAL: Abdomen soft, right upper quadrant pain to palpation with slight guarding, otherwise no pain to palpation. Active bowel sounds. EXTREMITIES: No clubbing, cyanosis, or edema. No joint tenderness, effusion, or edema noted. BACK: Nontender without deformity or crepitance. No flank tenderness. NEURO: AOx3. SKIN: No rash or erythema. Initial Vital Signs Initial Vital Signs: Vital Signs Temperature 97.1 F L 05/27/21 10:15 Pulse Rate 72 05/27/21 10:15 Respiratory Rate 14 05/27/21 10:15 Blood Pressure 152/74 H 05/27/21 10:15 Pulse Oximetry 99 05/27/21 10:15 <Britney Reyes DO - Last Filed: 05/28/21 19:37> Initial Vital Signs Initial Vital Signs: Vital Signs Temperature 97.1 F L 05/27/21 10:15 Pulse Rate 72 05/27/21 10:15 Respiratory Rate 14 05/27/21 10:15 Blood Pressure 152/74 H 05/27/21 10:15 Pulse Oximetry 99 05/27/21 10:15 Scores <ALLIE Russ - Last Filed: 05/27/21 18:35> GCS [place] coma scale eye opening: Spontaneous [place] coma scale verbal response: Orientated [place] coma scale motor response: Obey commands [place] coma scale total score: 15 <Britney Reyes DO - Last Filed: 05/28/21 19:37> GCS [place] coma scale total score: 15 Course <ALLIE Russ - Last Filed: 05/27/21 18:35> Orders Ordered: Discontinued Medications Amoxicillin/Clavulanate Potassium (Amoxicillin/Clav 875/125 Mg) 1 tab PO NOW ONE Stop: 05/27/21 15:21 Last Admin: 05/27/21 15:33 Dose: 1 tab Documented by: TARAS Vital Signs Vital signs: Vital Signs - 8 hr 05/27/21 14:53 05/27/21 16:17 Pulse Rate 60 61 Respiratory Rate 16 16 Blood Pressure 146/63 H 158/79 H Pulse Oximetry 100 100 <Britney Reyes DO - Last Filed: 05/28/21 19:37> Orders Ordered: Discontinued Medications Amoxicillin/Clavulanate Potassium (Amoxicillin/Clav 875/125 Mg) 1 tab PO NOW ONE Stop: 05/27/21 15:21 Last Admin: 05/27/21 15:33 Dose: 1 tab Documented by: TARAS Vital Signs Vital signs: Vital Signs - 8 hr 05/27/21 14:53 05/27/21 16:17 Pulse Rate 60 61 Respiratory Rate 16 16 Blood Pressure 146/63 H 158/79 H Pulse Oximetry 100 100 MDM - Abdominal Pain <ALLIE Russ - Last Filed: 05/27/21 18:35> Differential Diagnosis Differential diagnosis: Likely abdominal pain, acute appendicitis, constipation and other Lab Data Attestation: I reviewed the patient's lab results. Result diagrams: 05/27/21 10:25 05/27/21 10:25 Labs: Lab Results 05/27/21 05/27/21 05/27/21 Range/Units 10:16 10:25 10:25 WBC 7.3 (4.5-11.0) X10^3/uL RBC 4.95 (4.0-5.2) X10^6/uL Hgb 15.1 (12.0-16.0) g/dL Hct 44.8 (36-46) % MCV 90.5 (80-100) fL MCH 30.5 (26-34) PG MCHC 33.7 (30-36) % RDW 13.6 (11.6-14.8) % Plt Count 243 (150-400) X10^3/uL Neut % (Auto) 59.8 (50-75) % Lymph % (Auto) 28.0 (25-40) % [place] % (Auto) 9.6 (3-14) % Eos % (Auto) 1.7 L (2-4) % Baso % (Auto) 0.9 (0-2) % Neut # (Auto) 4400 (9525-4959) /uL Lymph # (Auto) 2000 (9725-9790) /uL Garrard # (Auto) 700 (0-900) /uL Eos # (Auto) 100 (0-450) /uL Baso # (Auto) 100 (0-100) /uL Sodium 139 (137-145) mmol/L Potassium 4.1 (3.4-5.1) mmol/L Chloride 104 (98-107) mmol/L Carbon Dioxide 27 (22-32) mmol/L BUN 13 (7-17) mg/dL Creatinine 0.81 (0.52-1.04) mg/dL Estimated GFR > 60.0 (>60) mL/min BUN/Creatinine Ratio 16.0 (6-22) Glucose 133 H (80-110) mg/dL Calcium 9.7 (8.4-10.2) mg/dL Total Bilirubin 1.3 (0.2-1.3) mg/dL AST 43 H (14-36) IU/L ALT 31 (<35) IU/L Alkaline Phosphatase 78 (38-126) U/L Total Protein 7.9 (6.3-8.2) g/dL Albumin 4.6 (3.5-5.0) g/dL Globulin 3.3 (1.7-4.1) g/dL Albumin/Globulin Ratio 1.4 (1.0-2.8) Lipase 30 (23-300) U/L Urine Color Yellow Urine Appearance Clear Urine pH 5.5 (4.5-8.0) Ur Specific [place] 1.010 (1.000-1.035) Urine Protein Trace H (Negative) Urine Glucose (UA) Negative (Negative) g/dL Urine Ketones Negative (NEGATIVE) Urine Occult Blood Trace-lysed (Negative) Urine Nitrate Negative (Negative) Urine Bilirubin Negative (NEGATIVE) Urine Urobilinogen 0.2 (0.2) E.U./dL Ur Leukocyte Esterase Trace H (NEGATIVE) Urine RBC None seen (0-5/HPF) Urine WBC 1-5/hpf (0-5/HPF) Ur Squamous Epith Cells 0-1 /hpf (0-5/HPF) Ur Transition Epith Cell 0-1/hpf (0-5/HPF) Urine Bacteria None seen (None) Urine Mucus 1+ H (Negative) Ur Culture Indicated? Cult not indicated SARS-CoV-2 (PCR) (Negative) 05/27/21 Range/Units 14:14 WBC (4.5-11.0) X10^3/uL RBC (4.0-5.2) X10^6/uL Hgb (12.0-16.0) g/dL Hct (36-46) % MCV (80-100) fL MCH (26-34) PG MCHC (30-36) % RDW (11.6-14.8) % Plt Count (150-400) X10^3/uL Neut % (Auto) (50-75) % Lymph % (Auto) (25-40) % [place]arrard % (Auto) (3-14) % Eos % (Auto) (2-4) % Baso % (Auto) (0-2) % Neut # (Auto) (6354-9649) /uL Lymph # (Auto) (5120-6125) /uL Garrard # (Auto) (0-900) /uL Eos # (Auto) (0-450) /uL Baso # (Auto) (0-100) /uL Sodium (137-145) mmol/L Potassium (3.4-5.1) mmol/L Chloride (98-107) mmol/L Carbon Dioxide (22-32) mmol/L BUN (7-17) mg/dL Creatinine (0.52-1.04) mg/dL Estimated GFR (>60) mL/min BUN/Creatinine Ratio (6-22) Glucose (80-110) mg/dL Calcium (8.4-10.2) mg/dL Total Bilirubin (0.2-1.3) mg/dL AST (14-36) IU/L ALT (<35) IU/L Alkaline Phosphatase (38-126) U/L Total Protein (6.3-8.2) g/dL Albumin (3.5-5.0) g/dL Globulin (1.7-4.1) g/dL Albumin/Globulin Ratio (1.0-2.8) Lipase (23-300) U/L Urine Color Urine Appearance Urine pH (4.5-8.0) Ur Specific [place] (1.000-1.035) Urine Protein (Negative) Urine Glucose (UA) (Negative) g/dL Urine Ketones (NEGATIVE) Urine Occult Blood (Negative) Urine Nitrate (Negative) Urine Bilirubin (NEGATIVE) Urine Urobilinogen (0.2) E.U./dL Ur Leukocyte Esterase (NEGATIVE) Urine RBC (0-5/HPF) Urine WBC (0-5/HPF) Ur Squamous Epith Cells (0-5/HPF) Ur Transition Epith Cell (0-5/HPF) Urine Bacteria (None) Urine Mucus (Negative) Ur Culture Indicated? SARS-CoV-2 (PCR) Negative (Negative) Imaging Data US - abdomen: Radiologist's Impression: [address] [place] [id number] ReportSigned Patient: Lianet Flower DMR#: [id number]: [id number]:[id number]/Sex: 75 / FDate of Service: 05/27/21Loc: EDAccession Number: [id number] Procedure: US abdomen limited Ordering Provider: Britney Reyes D.O. PROCEDURE: US ABDOMEN LIMITED INDICATIONS: RIGHT UPPER QUADRANT PAIN TECHNIQUE: Real-time focused scanning was performed of the abdomen, with image documentation. COMPARISON: [facility], CT, CT ABDOMEN PELVIS W CON, 05/25/2021, 23:29. FINDINGS: On the previous CT, there was gallbladder wall thickening and gallbladder wall edema, highly consistent with acute cholecystitis. By CT, the gallbladder wall measured approximately 8 mm. On the current ultrasound, the gallbladder wall is no longer edematous in appearance. It is mildly thickened, measuring up to 3.5 mm in thickness. No stones. No pain on examination. Liver echo pattern is mildly increased, and somewhat heterogeneous. Visualized portions of the pancreas are unremarkable. IMPRESSION: The constellation of findings, when viewed in conjunction to the previous CT, suggests improving acalculous cholecystitis. Dictated by: Jong Patterson M.D. on 05/27/2021 at 11:34 Approved by: Jong Patterson M.D. on 05/27/2021 at 11:37 MDM Narrative Medical decision making narrative: The patient is a 75-year-old female who presents with a chief complaint of persistent right upper quadrant pain subsequent diagnosis of acute cholecystitis. The patient has no elevated white blood cell count, is not febrile and would like to avoid surgery. I did speak with Dr. Avalos, surgeon who states that the patient can either have her gal lbladder out, or try p.o. antibiotics as she has no gallstones, no white count and prefers to go home. The patient elects to be discharged with p.o. antibiotics rather than come in for surgery. Per Dr. Avalos's accordance, patient was started on Augmentin. she was given her 1st dose in the emergency department prior to discharge and tolerated well. I also gave her small prescriptions of Zofran and pain medicine. I did discussed at length with the patient and her daughter Isa, that she has to come back to the emergency department for any acute concerns including abdominal pain with fever, Inability keep down fluids etcetera. I discussed at length follow up with primary care provider as well as Dr. Avalos and contact information was given. Patient daughter no questions or concerns upon discharge states understanding of return Precautions as well as follow-up care. <Britney Reyes, - Last Filed: 05/28/21 19:37> Lab Data Labs: Lab Results 05/27/21 05/27/21 05/27/21 Range/Units 10:16 10:25 10:25 WBC 7.3 (4.5-11.0) X10^3/uL RBC 4.95 (4.0-5.2) X10^6/uL Hgb 15.1 (12.0-16.0) g/dL Hct 44.8 (36-46) % MCV 90.5 (80-100) fL MCH 30.5 (26-34) PG MCHC 33.7 (30-36) % RDW 13.6 (11.6-14.8) % Plt Count 243 (150-400) X10^3/uL Neut % (Auto) 59.8 (50-75) % Lymph % (Auto) 28.0 (25-40) % [place] % (Auto) 9.6 (3-14) % Eos % (Auto) 1.7 L (2-4) % Baso % (Auto) 0.9 (0-2) % Neut # (Auto) 4400 (9757-2009) /uL Lymph # (Auto) 2000 (5718-1684) /uL [place] # (Auto) 700 (0-900) /uL Eos # (Auto) 100 (0-450) /uL Baso # (Auto) 100 (0-100) /uL Sodium 139 (137-145) mmol/L Potassium 4.1 (3.4-5.1) mmol/L Chloride 104 (98-107) mmol/L Carbon Dioxide 27 (22-32) mmol/L BUN 13 (7-17) mg/dL Creatinine 0.81 (0.52-1.04) mg/dL Estimated GFR > 60.0 (>60) mL/min BUN/Creatinine Ratio 16.0 (6-22) Glucose 133 H (80-110) mg/dL Calcium 9.7 (8.4-10.2) mg/dL Total Bilirubin 1.3 (0.2-1.3) mg/dL AST 43 H (14-36) IU/L ALT 31 (<35) IU/L Alkaline Phosphatase 78 (38-126) U/L Total Protein 7.9 (6.3-8.2) g/dL Albumin 4.6 (3.5-5.0) g/dL Globulin 3.3 (1.7-4.1) g/dL Albumin/Globulin Ratio 1.4 (1.0-2.8) Lipase 30 (23-300) U/L Urine Color Yellow Urine Appearance Clear Urine pH 5.5 (4.5-8.0) Ur Specific [place] 1.010 (1.000-1.035) Urine Protein Trace H (Negative) Urine Glucose (UA) Negative (Negative) g/dL Urine Ketones Negative (NEGATIVE) Urine Occult Blood Trace-lysed (Negative) Urine Nitrate Negative (Negative) Urine Bilirubin Negative (NEGATIVE) Urine Urobilinogen 0.2 (0.2) E.U./dL Ur Leukocyte Esterase Trace H (NEGATIVE) Urine RBC None seen (0-5/HPF) Urine WBC 1-5/hpf (0-5/HPF) Ur Squamous Epith Cells 0-1 /hpf (0-5/HPF) Ur Transition Epith Cell 0-1/hpf (0-5/HPF) Urine Bacteria None seen (None) Urine Mucus 1+ H (Negative) Ur Culture Indicated? Cult not indicated SARS-CoV-2 (PCR) (Negative) 05/27/21 Range/Units 14:14 WBC (4.5-11.0) X10^3/uL RBC (4.0-5.2) X10^6/uL Hgb (12.0-16.0) g/dL Hct (36-46) % MCV (80-100) fL MCH (26-34) PG MCHC (30-36) % RDW (11.6-14.8) % Plt Count (150-400) X10^3/uL Neut % (Auto) (50-75) % Lymph % (Auto) (25-40) % [place] % (Auto) (3-14) % Eos % (Auto) (2-4) % Baso % (Auto) (0-2) % Neut # (Auto) (1742-9569) /uL Lymph # (Auto) (5962-6053) /uL [place]ard # (Auto) (0-900) /uL Eos # (Auto) (0-450) /uL Baso # (Auto) (0-100) /uL Sodium (137-145) mmol/L Potassium (3.4-5.1) mmol/L Chloride (98-107) mmol/L Carbon Dioxide (22-32) mmol/L BUN (7-17) mg/dL Creatinine (0.52-1.04) mg/dL Estimated GFR (>60) mL/min BUN/Creatinine Ratio (6-22) Glucose (80-110) mg/dL Calcium (8.4-10.2) mg/dL Total Bilirubin (0.2-1.3) mg/dL AST (14-36) IU/L ALT (<35) IU/L Alkaline Phosphatase (38-126) U/L Total Protein (6.3-8.2) g/dL Albumin (3.5-5.0) g/dL Globulin (1.7-4.1) g/dL Albumin/Globulin Ratio (1.0-2.8) Lipase (23-300) U/L Urine Color Urine Appearance Urine pH (4.5-8.0) Ur Specific [place] (1.000-1.035) Urine Protein (Negative) Urine Glucose (UA) (Negative) g/dL Urine Ketones (NEGATIVE) Urine Occult Blood (Negative) Urine Nitrate (Negative) Urine Bilirubin (NEGATIVE) Urine Urobilinogen (0.2) E.U./dL Ur Leukocyte Esterase (NEGATIVE) Urine RBC (0-5/HPF) Urine WBC (0-5/HPF) Ur Squamous Epith Cells (0-5/HPF) Ur Transition Epith Cell (0-5/HPF) Urine Bacteria (None) Urine Mucus (Negative) Ur Culture Indicated? SARS-CoV-2 (PCR) Negative (Negative) Discharge Plan Departure Patient Disposition: Home Clinical Impression: Cholecystitis Abdominal pain Qualifiers: Abdominal location: right upper quadrant Qualified Code(s): R10.11 - Right upper quadrant pain Instructions: Eating a Diet Low in Saturated Fat, Trans Fat, and Cholesterol, Clear Liquid Diet, DI for Abdominal Pain-Adult, DI for Cholecystitis Activity Restrictions/Additional Instructions: Thank you for trusting us with your care today. As discussed, your exam and workup is concerning for cholecystitis. I spoke with Dr. Avalos our surgeon, and you have elected to be discharged with p.o. antibiotics Rather than surgery. As discussed, I sent a prescription of antibiotics as well as pain medicine and nausea medicine to [facility] in [place]. That being said, if you feel worse please come back to the emergency department. This includes abdominal pain with fever, inability keep down fluids etcetera. I have included contact information for Dr. Avalos and his office so that you can follow-up with him. Please follow-up with primary care provider as well. As discussed, please start with a clear liquid diet. Slowly progress Your diet. Avoid anything fatty, deep fried etcetera. please come back to the emergency department for any acute concerns. Prescriptions: New amoxicillin-pot clavulanate [Augmentin] 875-125 mg tablet 1 tab PO BID Qty: 20 RF: 0 hydrocodone-acetaminophen 5-325 mg tablet 1 tab PO Q4-6H PRN (Reason: pain) Qty: 7 RF: 0 ondansetron 4 mg tablet,disintegrating 4 mg PO Q6H PRN (Reason: nausea and vomiting) Qty: 14 RF: 0 No Action calcium citrate-vitamin D3 [Citracal-D3 Petites] 950 MG/250 IU tablet 1 tab PO Qty: 0 RF: 0 colchicine 0.6 mg tablet 0.6 mg PO DAILY Qty: 20 RF: 1 metoprolol succinate 100 mg tablet extended release 24 hr 100 mg PO DAILY Qty: 90 RF: 2 cetirizine 10 mg tablet 10 mg PO DAILY PRN (Reason: allergy symptoms) Qty: 90 RF: 4 losartan 50 mg tablet See Rx Instructions .ROUTE .COMPLEX Qty: 90 RF: 2 metformin 500 mg tablet extended release 24 hr 500 mg PO DAILY Qty: 90 RF: 2 rosuvastatin 20 mg tablet See Rx Instructions .ROUTE .COMPLEX Qty: 90 RF: 1 amitriptyline 25 mg tablet 25 mg PO HS Qty: 90 RF: 1 fluticasone propionate [Flonase Allergy Relief] 50 mcg/actuation spray,suspension 1 spray Intranasal QDAY Qty: 15.8 RF: 1 levothyroxine 25 mcg tablet 25 mcg PO QAM Qty: 90 RF: 1 esomeprazole magnesium [Nexium] 20 mg capsule,delayed release(DR/EC) 20 mg PO DAILY Qty: 90 RF: 1 terbinafine HCl 250 mg tablet 250 mg PO DAILY Qty: 90 RF: 1 allopurinol 100 mg tablet 100 mg PO DAILY Qty: 90 RF: 3 Referrals: [facility] [Provider Group] Trent Avalos MD [Physician] - Marquis Bennett DO [Primary Care Provider] - <Britney Reyes DO - Last Filed: 05/28/21 19:37> Cosign ED Attending Cosignature Attestation: I was immediately available in the department for consultation. Documentation has been reviewed, case discussed.
[2021-05-27 14:53] VITALS: BP 146/63; PULSE 60; RESP 16; O2SAT 100
[2021-05-27 15:12] LABS: COVID19 - ADMIT (NP swab/PCR) Negative (Negative)
[2021-05-27] MEDS: AMOXICILLIN/CLAV 875/125 MG 1 TAB PO (15:33)
[2021-05-27 16:17] VITALS: BP 158/79; PULSE 61; RESP 16; O2SAT 100
== END 2021-05-27 16:18 | disposition home or self-care (01) ==
PROVIDERS: Emergency Medicine; Emergency Provider Nurse Practitioner Family; PCP Family Medicine
DX: K81.9 Cholecystitis, unspecified (principal); R10.11 Right upper quadrant pain; Z20.822 Contact with and (suspected) exposure to COVID-19
CPT/HCPCS: 36415; 76705; 80053; 81001; 83690; 85025; 87635; 99284; C9803

== ENCOUNTER → 2021-06-24 10:08 | Outpatient (CLI) | payer MEDICARE, OTHER, SELFPAY ==
[2021-06-24 11:42] LABS: COVID19 -Nasal RAPID Negative (Negative)
== END ==
PROVIDERS: PCP Family Medicine; Visit Provider Surgery
DX: Z01.812 Encounter for preprocedural laboratory examination (principal); Z20.822 Contact with and (suspected) exposure to COVID-19
CPT/HCPCS: 87635; C9803

== ENCOUNTER 2021-06-25 11:18 | Day surgery (SDC) | payer MEDICARE, OTHER, SELFPAY ==
[2021-06-19 12:09] VITALS: BMI 29.4
[2021-06-25] VITALS (14 sets, daily range): BP systolic 128–185; BP diastolic 68–129; PULSE 62–90; RESP 12–20; TEMP 36.6–37.1; O2SAT 93–100; BMI 29.4
--- NOTE | 2021-06-25 | PATH_ITS ---
[facility] Accession Number: [id number] . 01 Material submitted: . gallbladder - GALLBLADDER AND CONTENTS . 01 Clinical history: . SDC . 02 Diagnosis: Gallbladder and Contents: Acute and chronic cholecystitis and cholesterolosis. V 06/27/2021 1520 Local . 02 Electronically signed: . Marisa Rodriguez MD, Pathologist NPI- [id number] . 01 Gross description: . The specimen is received in formalin, labeled gallbladder and consists of a 7.0 x 3.5 x 2.5 cm previously disrupted gallbladder with a 0.2 cm in diameter cystic duct. The serosa is pink-purple and smooth. Opening reveals green viscous bile admixed with a brown friable material. The mucosa is mittal-pink and velvety, and the wall thickness measures 0.1 cm. [employer] sections are submitted, to include the en face cystic duct margin (blue), in cassette A1. ([id number]) /V 06/26/2021 1011 Local . 02 Pathologist provided ICD-10: K81.1 . 02 CPT . 495371 Specimen Comment: A duplicate report has been generated due to demographic updates. Performed at: [address] [facility] [address], [place], [place] [id number] MD Luis Elena MD Phone: [phone] Performed at: [address] [facility] [address] [place], [place] [id number] MD Lesli Riley MD Phone: [phone]
--- NOTE | 2021-06-25 12:48 | PM.PREOP ---
Pre-operative Note Interval Note History & Physical reviewed/Exam performed by Physician: Yes Changes to H&P: No
[2021-06-25] MEDS: CEFAZOLIN 1 GM VIAL 2 GM IV (13:10)
--- NOTE | 2021-06-25 13:20 | SUR.OPER ---
Supine on padded OR bed, head on pillow, safety belt at thigh, left arm padded and tucked at side. Right arm secured on padded arm board <90 degrees abduction. Legs uncrossed. Padded footboard in place. Tape over blanket to secure lower legs.
[2021-06-25] MEDS: BUPIVACAINE 0.25% (PF) VIAL 30 ML INJ (13:34)
--- NOTE | 2021-06-25 14:30 | P.OP_ITS ---
Operative Date/Time/Diagnoses Date of procedure: 06/25/21 Time of procedure: 14:30 Pre-op diagnosis: biliary colic Post-op diagnosis: same Procedure & Clinicians Procedure: laparoscopic cholecystectomy Same procedure as scheduled: Yes Indications: biliary colic Surgeon: Trent Avalos Anesthesia Type: General Operative Notes Findings: chronic cholecystitis Specimen(s): other (gallbladder) Estimated Blood Loss (mL): 20 Procedure in detail: The patient was placed supine on the table and bilateral lower extremity compression devices were applied. Anesthesia was induced they were intubated with an endotracheal tube and received 2g of Ancef. A time-out was performed. They were prepped and draped in sterile fashion. An inf raumbilical incision was made, the umbilical stalk was elevated and the fascia was sharply incised entering the abdomen atraumatically. A blunt tip 12mm balloon trocar was then inserted, pneumoperitoneum was established and inspection of the abdomen demonstrated no evidence of injury. They were placed head up and right side up and then a 11 mm port was placed high in the epigastrium and two 5mm in the right upper quadrant. There were dense adhesions in the RLQ from prior open appendectomy. The gallbladder was grasped by the fundus and retracted over the liver and retracted laterally by the infundibulum. There were adhesions between the omentum and the gallbladder from chronic cholecystitis that were carefully taken down. Using electrocautery the lateral plane between the gallbladder and the liver was opened towards the fundus. The gallbladder was then retracted laterally and the medial plane was developed in the same manner. With the gallbladder mobilized the bottom of the cystic plate was visualized. The hepatocystic triangle was meticulosly skeletonized using hook electrocautery of all fat and fibrous tissue from both the front and the back. Only two structures were then clearly seen entering the gallbladder the cystic duct and the cystic artery. With the critical view of safety fully established the cystic duct was clipped twice proximally and once distally using the 10 mm weck hemo clip applied under direct visualization and then sharply divided. The cystic artery was divided in the same fashion. The gallbladder was removed from the liver bed using electro cautery. The liver bed was then inspected for hemostasis and this was achieved. The abdomen was irrigated with sterile saline and inspection was made that showed the clips in good position. The specimen was removed using Endo-Catch. The abdomen was desufflated. The umbilical fascia was closed with 0 Vicryl in a [id number] fashion under direct visualization. Skin incisions were irrigated and closed with 4-0 Monocryl. 30 ml of 0.25% bupivacaine was infiltrated into the subcutaneous tissue of the incisions. The wounds were sealed with Dermabond. Patient emerged from anesthesia was extubated and transferred to recovery in stable condition. The sponge and instrument count at the end of the operation was correct. Complications: none Post-operative Condition: stable Disposition: same day surgery
[2021-06-25] MEDS: OXYCODONE IR 5 MG TABLET PO ×2 (14:45→16:15)
[2021-06-25] MEDS: ACETAMINOPHEN 325 MG TABLET 650 MG PO (14:45)
[2021-06-25] MEDS: BENZOCAINE/MENTHOL 1 LOZ PKT 1 EACH PO (14:46)
[2021-06-25] MEDS: LACTATED RINGERS 1,000 ML 42 ML IV (14:46)
[2021-06-25] MEDS: METOPROLOL ER 50 MG TABLET 100 MG PO (14:47)
[2021-06-25] MEDS: ALBUTEROL 2.5 MG/3 ML NEB (ADULT) INH (15:27)
--- NOTE | 2021-06-25 16:32 | SUR.PHASEII ---
[Pt arrived from PACU with extensive coughing which has finally calmed. She is ready for discharge and awaiting her daughter to arrive. She was given an additional 5mg of oxycodone for mild abd discomfort and also for her cough. All discharge instructions were reviewed with pt. She was given a depends brief for stress incontinence r/t coughing. She is in stable condition as of this current note.
== END 2021-06-25 16:36 | disposition home or self-care (01) ==
PROVIDERS: PCP Family Medicine; Referring Provider Surgery; Visit Provider Surgery
PROC: 0FT44ZZ Resection of Gallbladder, Percutaneous Endoscopic Approach (ICD-10-PCS; CPT 47562; principal; 2021-06-25 12:45)
DX: K81.1 Chronic cholecystitis (principal); I10 Essential (primary) hypertension; E78.5 Hyperlipidemia, unspecified; K21.9 Gastro-esophageal reflux disease without esophagitis; E11.9 Type 2 diabetes mellitus without complications; G47.33 Obstructive sleep apnea (adult) (pediatric); Z79.84 Long term (current) use of oral hypoglycemic drugs
CPT/HCPCS: 47562; 82962; J0690; J1885; J2405; J2704; J3010; J7613

== ENCOUNTER 2021-08-18 10:06 | Emergency (ER) | payer MEDICARE, OTHER, SELFPAY ==
[2021-08-18] VITALS (7 sets, daily range): BP systolic 114–176; BP diastolic 66–72; PULSE 62–66; RESP 14–28; TEMP 36.6; O2SAT 96–100; BMI 25.7
--- NOTE | 2021-08-18 10:29 | DI.RAD.S_ITS ---
PROCEDURE: XR CHEST 1V INDICATIONS: fall, trauma, preop TECHNIQUE: One view of the chest was acquired. COMPARISON: None. FINDINGS: Surgical changes and devices: None. Lungs and pleura: Lungs are clear. No pleural effusions or pneumothorax. Mediastinum: Mediastinal contours appear normal. Heart size is normal. Bones and chest wall: No suspicious bony lesions. Overlying soft tissues appear unremarkable. IMPRESSION: No acute cardiopulmonary abnormality Dictated by: Luis Alberto Garcia M.D. on 08/18/2021 at 11:12 Approved by: Luis Alberto Garcia M.D. on 08/18/2021 at 11:13
[2021-08-18 10:35] LABS: Add Manual Diff / Slide Review NO; Basophils Absolute Auto 100 /uL (0-100); Basophils Percent Auto 1.2 % (0-2); Eosinophils Absolute Auto 100 /uL (0-450); Eosinophils Percent Auto 2.3 % (2-4); Hematocrit 43.9 % (36-46); Hemoglobin 14.7 g/dL (12.0-16.0); Lymphocytes Absolute Auto 2200 /uL (1100-4500); Lymphocytes Percent Auto 37.8 % (25-40); Mean Corpuscular HGB Conc 33.5 % (30-36); Mean Corpuscular Volume 89.3 fL (80-100); Monocytes Absolute Auto 400 /uL (0-900); Monocytes Percent Auto 6.8 % (3-14); Neutrophils Absolute Auto 3000 /uL (1500-7000); Neutrophils Percent Auto 51.9 % (50-75); Platelet Count 248 X10^3/uL (150-400); Red Blood Cell Count 4.91 X10^6/uL (4.0-5.2); Red Cell Distribution Width 14.7 % (11.6-14.8); White Blood Cell Count 5.8 X10^3/uL (4.5-11.0)
--- NOTE | 2021-08-18 10:45 | ED_ITS ---
HPI - Nausea/Vomiting/Diarrhea General Chief complaint: Nausea/Vomiting/Diarrhea Stated complaint: Light headed, Nauseas, Fatigued Time Seen by Provider: 08/18/21 10:15 History of Present Illness HPI Narrative: 76-year-old female former smoker with history of gout, hypertension, GERD, peptic ulcer disease, obstructive sleep apnea, type 2 diabetes presents with family in the chief complaint of about 1 week of feeling generally unwell. She states that she had been in her normal state of health and after getting both her flu and COVID vaccination she has felt under the weather. She feels weak and sleepy, complaining that she feels very tired despite getting a normal amount of sleep at night. She feels wore now with exertion. She feels a bit unsteady. She denies any change in medications or diet. She denies any blurred vision or trouble speech. She is not dizzy. She denies any extremity numbness, tingling or weakness. She denies fever or chills. She denies any shortness of breath. She states that she used her treadmill yesterday for 20 minutes and felt totally fine. She denies abdominal pain, constipation or diarrhea. She denies dysuria, frequency or urgency. Related Data Home Medications Medication Instructions Recorded Confirmed calcium citrate 200 mg 1 tab PO DIRECTED #0 09/03/16 07/24/21 calcium-vitamin D3 6.25 mcg (250 unit) tablet (Citracal-D3 Petites) Previous Rx's Medication Instructions Recorded amitriptyline 25 mg tablet 25 mg PO HS #90 tab 04/06/20 esomeprazole magnesium 20 mg 20 mg PO DAILY #90 cap 04/06/20 capsule,delayed release (Nexium) fluticasone propionate 50 1 spray INTRANASAL QDAY #15.8 ml 04/06/20 mcg/actuation nasal spray,suspension (Flonase Allergy Relief) terbinafine HCl 250 mg tablet 250 mg PO DAILY #90 tab 04/06/20 cetirizine 10 mg tablet 10 mg PO DAILY PRN #90 tab 12/12/20 rosuvastatin 20 mg tablet See Rx Instructions .ROUTE 02/20/21 .COMPLEX #90 tab allopurinol 300 mg tablet 300 mg PO DAILY #90 tab 06/19/21 colchicine 0.6 mg tablet 0.6 mg PO DAILY #20 tab 06/19/21 losartan 50 mg tablet See Rx Instructions .ROUTE 06/19/21 .COMPLEX #90 tab metformin 500 mg tablet,extended 500 mg PO DAILY #90 tab 06/19/21 release 24 hr acetaminophen 325 mg capsule 650 mg PO QID PRN #60 cap 06/25/21 (Tylenol) metoprolol succinate 100 mg See Rx Instructions .ROUTE 08/16/21 tablet,extended release 24 hr .COMPLEX #90 tab Allergies Allergy/AdvReac Type Severity Reaction Status Date / Time propoxyphene Allergy Intermediate Rash Verified 07/24/21 15:07 [From SPRING] Review of Systems Review of Systems Narrative: GENERAL: See HPI HEENT: Denies sinus pain, ear pain, sore throat, difficulty swallowing, dizziness. RESPIRATORY: See HPI CARDIOVASCULAR: See HPI GASTROINTESTINAL: Denies nausea, vomiting, abdominal pain, diarrhea, co nstipation, melena. : Denies dysuria, frequency, incontinence, hematuria, urinary retention. MUSCULOSKELETAL: denies weakness, joint pain, or bony pain SKIN: Denies rash, skin lesions, or other NEUROLOGIC: Denies weakness, headache, numbness, change in speech, confusion, seizures, incoordination. PSYCHIATRIC: No concerning psychosocial issues. 12 point review of systems is negative except for those stated above Patient History Medical History Abnormal Pap smear of cervix Anxiety Arthritis Chronic a-fib Chronic back pain Diverticulitis Fungal toenail infection GERD (gastroesophageal reflux disease) Gout Hyperlipidemia Hypertension Hypothyroidism Joint pain Lung cancer (~1995) Osteoarthritis Palpitations Peptic ulcer disease Pulmonary hypertension Right knee pain Sleep apnea Stomach ulcer Type 2 diabetes mellitus Surgical History Anesthesia H/O cardiac radiofrequency ablation History of appendectomy History of section (06/1981) History of hysterectomy History of removal of cyst Hx of LASIK Family History Father Cancer Mother Hypertension Stroke Brother Hypertension Brother History of emphysema Sister Cancer Family/Other Hypertension Mental health problem Social History household members: family Smoking Status: Former smoker Tobacco: How many years used: 10 quit status: has quit before alcohol intake: current substance use type: marijuana Smoking Status: Former smoker alcohol intake frequency: 0-2 drinks per day Substance Use Type: does not use Exam Narrative Exam Narrative: GENERAL: [76 year old patient appears stated age. Well-developed patient, in mild distress. HEAD: Atraumatic. Normocephalic. EYES: Pupils equal round and reactive. Extraocular motions intact. No scleral icterus. No injection or drainage. ENT: Nose without bleeding, purulent drainage. Throat without erythema, tonsillar hypertrophy or exudate. Airway patent. NECK: Trachea midline. Non tender CARDIOVASCULAR: Regular rate and rhythm without murmurs, gallops, or rubs. RESPIRATORY: Clear to auscultation. Breath sounds equal bilaterally. No wheezes, rales, or rhonchi. GASTROINTESTINAL: Abdomen soft, non-tender, nondistended. EXTREMITIES: No edema or joint tenderness. BACK: Nontender without deformity or crepitance. No flank tenderness. NEURO: AOx3. SKIN: No rash or erythema of visible areas Initial Vital Signs Initial Vital Signs: Vital Signs Pulse Rate 66 08/18/21 10:28 Respiratory Rate 16 08/18/21 10:28 Pulse Oximetry 98 08/18/21 10:28 Course Orders Ordered: ED Orders 08/18/21 10:27 Complete Blood Count AUTO DIFF Stat Comprehensive Metabolic Panel Stat D Dimer Stat Lipase Stat Magnesium Stat NT-proBNP (BNP-Adult 18+) Stat Troponin & CK Cardiac Panel Stat 08/18/21 10:29 XR chest 1V Stat EKG-12 Lead Stat 08/18/21 10:34 COVID19 -Nasal swab/Pre-Proc Stat Discontinued Medications Sodium Chloride (Normal Saline 0.9%) 500 mls @ 1,000 mls/hr IV BOLUS ONE Stop: 08/18/21 10:57 Last Infusion: 08/18/21 11:14 Dose: 0 mls/hr Documented by: Admin: 08/18/21 10:46 Dose: 1,000 mls/hr Documented by: ORLIN Vital Signs Vital signs: Vital Signs - 8 hr 08/18/21 10:28 08/18/21 10:30 08/18/21 11:00 Temperature 97.9 F Pulse Rate 66 66 63 Respiratory Rate 16 17 18 Blood Pressure 136/69 Pulse Oximetry 98 97 96 08/18/21 11:01 08/18/21 11:24 10/24/21 11:30 Temperature Pulse Rate 62 62 62 Respiratory Rate 16 21 14 Blood Pressure 114/69 155/71 H 124/66 Pulse Oximetry 96 97 98 08/18/21 12:00 Temperature Pulse Rate 62 Respiratory Rate 28 H Blood Pressure Pulse Oximetry MDM - Nausea/Vomiting/Diarrhea Lab Data Result diagrams: 08/18/21 10:08/18/21 10: Labs: Lab Results 08/18/21 08/18/21 08/18/21 Range/Units 10: 10: 10: WBC 5.8 (4.5-11.0) X10^3/uL RBC 4.91 (4.0-5.2) X10^6/uL Hgb 14.7 (12.0-16.0) g/dL Hct 43.9 (36-46) % MCV 89.3 (80-100) fL MCH 30.0 (26-34) PG MCHC 33.5 (30-36) % RDW 14.7 (11.6-14.8) % Plt Count 248 (150-400) X10^3/uL Neut % (Auto) 51.9 (50-75) % Lymph % (Auto) 37.8 (25-40) % [place] % (Auto) 6.8 (3-14) % Eos % (Auto) 2.3 (2-4) % Baso % (Auto) 1.2 (0-2) % Neut # (Auto) 3000 (8067-8436) /uL Lymph # (Auto) 2200 (0915-6337) /uL [place] # (Auto) 400 (0-900) /uL Eos # (Auto) 100 (0-450) /uL Baso # (Auto) 100 (0-100) /uL D-Dimer < 200 (<230) ng/mL Sodium 138 (137-145) mmol/L Potassium 3.8 (3.4-5.1) mmol/L Chloride 101 (98-107) mmol/L Carbon Dioxide 26 (22-32) mmol/L BUN 11 (7-17) mg/dL Creatinine 0.81 (0.52-1.04) mg/dL Estimated GFR > 60.0 (>60) mL/min BUN/Creatinine Ratio 13.6 (6-22) Glucose 171 H (80-110) mg/dL Calcium 9.6 (8.4-10.2) mg/dL Magnesium (1.6-2.3) mg/dL Total Bilirubin 1.0 (0.2-1.3) mg/dL AST 37 H (14-36) IU/L ALT 30 (<35) IU/L Alkaline Phosphatase 73 (38-126) U/L Total Creatine Kinase (30-135) U/L CK-MB (CK-2) CK-MB (CK-2) Rel Index Troponin I (0.01-0.034) ng/mL NT-Pro-B Natriuret Pep (<125) pg/mL Total Protein 7.3 (6.3-8.2) g/dL Albumin 4.6 (3.5-5.0) g/dL Globulin 2.7 (1.7-4.1) g/dL Albumin/Globulin Ratio 1.7 (1.0-2.8) Lipase 37 (23-300) U/L SARS-CoV-2 (PCR) (Negative) 08/18/21 08/18/21 Range/Units 10:27 10:34 WBC (4.5-11.0) X10^3/uL RBC (4.0-5.2) X10^6/uL Hgb (12.0-16.0) g/dL Hct (36-46) % MCV (80-100) fL MCH (26-34) PG MCHC (30-36) % RDW (11.6-14.8) % Plt Count (150-400) X10^3/uL Neut % (Auto) (50-75) % Lymph % (Auto) (25-40) % [place] % (Auto) (3-14) % Eos % (Auto) (2-4) % Baso % (Auto) (0-2) % Neut # (Auto) (3628-8480) /uL Lymph # (Auto) (2148-0369) /uL [place] # (Auto) (0-900) /uL Eos # (Auto) (0-450) /uL Baso # (Auto) (0-100) /uL D-Dimer (<230) ng/mL Sodium (137-145) mmol/L Potassium (3.4-5.1) mmol/L Chloride (98-107) mmol/L Carbon Dioxide (22-32) mmol/L BUN (7-17) mg/dL Creatinine (0.52-1.04) mg/dL Estimated GFR (>60) mL/min BUN/Creatinine Ratio (6-22) Glucose (80-110) mg/dL Calcium (8.4-10.2) mg/dL Magnesium 1.6 (1.6-2.3) mg/dL Total Bilirubin (0.2-1.3) mg/dL AST (14-36) IU/L ALT (<35) IU/L Alkaline Phosphatase (38-126) U/L Total Creatine Kinase 48 (30-135) U/L CK-MB (CK-2) TNP CK-MB (CK-2) Rel Index TNP Troponin I < 0.012 (0.01-0.034) ng/mL NT-Pro-B Natriuret Pep 52 (<125) pg/mL Total Protein (6.3-8.2) g/dL Albumin (3.5-5.0) g/dL Globulin (1.7-4.1) g/dL Albumin/Globulin Ratio (1.0-2.8) Lipase (23-300) U/L SARS-CoV-2 (PCR) Negative (Negative) Urine Dip Bedside Urine Glucose Negative Bedside Urine Bilirubin - Negative Bedside Urine Ketone - Negative Urine Specific [place] 1.010 Bedside Urine Occult Blood - Negative Bedside Urine pH 6.0 Bedside Urine Protein - Negative Bedside Urine Urobilinogen - Negative Bedside Urine Nitrite - Negative Bedside Urine Leukocytes - Negative Esterase Imaging Data Chest x-ray: Radiologist's Impression: Close Chest X-Ray (Signed) Luis Alberto Garcia - 08/18/21 Launch?[address] [address] XRay Report Signed Patient: Lianet Flower MR#: [id number] : 1945 Acct:[id number] Age/Sex: 76 / F Date of Service: 08/18/21 Loc: ED Accession Number: [id number] ?? Procedure: XR chest 1V Ordering Provider: Juliano Stokes D.O. PROCEDURE:? XR CHEST 1V ? INDICATIONS:? fall, trauma, preop ? TECHNIQUE:? One view of the chest was acquired.? ? COMPARISON:? None. ? FINDINGS:? ? Surgical changes and devices:? None.? ? Lungs and pleura:? Lungs are clear.? No pleural effusions or pneumothorax.? ? Mediastinum:? Mediastinal contours appear normal.? Heart size is normal.? ? Bones and chest wall:? No suspicious bony lesions.? Overlying soft tissues appear unremarkable.? ? IMPRESSION:? No acute cardiopulmonary abnormality ? ? Dictated by: Luis Alberto Garcia M.D. on 08/18/2021 at 11:12 ? ? Approved by: Luis Alberto Garcia M.D. on 08/18/2021 at 11:13 ? ECG Data Interpretation: EKG is normal sinus rhythm rate [ 67] and free of any signs of ischemia or ectopy. No ST segmental elevation or depression. No T wave in versions MDM Narrative Medical decision making narrative: Multiple etiologies for patient's symptoms considered including: [Electrolyte abnormality versus dehydration versus renal failure versus vaccine reaction versus other Patient's symptoms improved over duration of stay with above-stated therapies. Findings and discharge diagnosis discussed with patient/family followed by verbalization of understanding Return precautions discussed with patient/family whom verbalize understanding. Discharge Plan Departure Patient Disposition: Home Clinical Impression: Fatigue Qualifiers: Fatigue type: unspecified Qualified Code(s): R53.83 - Other fatigue Instructions: DI for Fatigue Activity Restrictions/Additional Instructions: *You have been diagnosed with [fatigue and weakness without clear diagnosis. Your history, physical exam, labs, EKG are all very reassuring *What to do: *Please continue to take your regular medications as directed. [ ] New medication prescriptions sent to your pharmacy: [ ] [ ] New medication written as a paper prescription [x ] No new medications given *Please follow up with your primary care provider in 2-3 days, call for an appointment. Let them know you were seen in the Emergency Department and that we ask that you be seen in follow up. We will electronically transmit a record of today's note if your PCP is in our system *If you do not have a primary care provider please contact the [facility] Resource line at [phone]. They will ask some questions about your medical history and help get you set up with a doctor in the community. *Return to Emergency Department if you should have any new, worsening or concerning symptoms, such as [fever greater than 101 F, shaking chills, worsening pain, persistent vomiting or other bothersome symptoms] Prescriptions: No Action calcium citrate-vitamin D3 [Citracal-D3 Petites] 950 MG/250 IU tablet 1 tab PO DIRECTED Qty: 0 RF: 0 cetirizine 10 mg tablet 10 mg PO DAILY PRN (Reason: allergy symptoms) Qty: 90 RF: 4 rosuvastatin 20 mg tablet See Rx Instructions .ROUTE .COMPLEX Qty: 90 RF: 1 metoprolol succinate 100 mg tablet extended release 24 hr See Rx Instructions .ROUTE .COMPLEX Qty: 90 RF: 2 amitriptyline 25 mg tablet 25 mg PO HS Qty: 90 RF: 1 fluticasone propionate [Flonase Allergy Relief] 50 mcg/actuation spray,suspension 1 spray Intranasal QDAY Qty: 15.8 RF: 1 esomeprazole magnesium [Nexium] 20 mg capsule,delayed release(DR/EC) 20 mg PO DAILY Qty: 90 RF: 1 terbinafine HCl 250 mg tablet 250 mg PO DAILY Qty: 90 RF: 1 allopurinol 300 mg tablet 300 mg PO DAILY Qty: 90 RF: 3 colchicine 0.6 mg tablet 0.6 mg PO DAILY Qty: 20 RF: 1 metformin 500 mg tablet extended release 24 hr 500 mg PO DAILY Qty: 90 RF: 3 losartan 50 mg tablet See Rx Instructions .ROUTE .COMPLEX Qty: 90 RF: 3 acetaminophen [Tylenol] 325 mg capsule 650 mg PO QID PRN (Reason: pain) Qty: 60 RF: 0 Referrals: Marquis Bennett DO [Primary Care Provider] -
[2021-08-18] MEDS: SODIUM CHLORIDE 0.9% 500 ML 1000 ML IV (10:46)
[2021-08-18 10:47] LABS: D Dimer < 200 ng/mL (<230)
[2021-08-18 10:48] LABS: Alanine Aminotransferase 30 IU/L (<35); Albumin 4.6 g/dL (3.5-5.0); Albumin Globulin Ratio 1.7 (1.0-2.8); Alkaline Phosphatase 73 U/L (38-126); Aspartate Aminotransferase 37 IU/L (14-36); BUN Creatinine Ratio 13.6 (6-22); Blood Urea Nitrogen 11 mg/dL (7-17); Calcium 9.6 mg/dL (8.4-10.2); Carbon Dioxide 26 mmol/L (22-32); Chloride 101 mmol/L (98-107); Estimated Glomerular Filt Rate > 60.0 mL/min (>60); Globulin 2.7 g/dL (1.7-4.1); Glucose 171 mg/dL (80-110); HEMOLYSIS 16 (0-50); Lipase 37 U/L (23-300); Potassium 3.8 mmol/L (3.4-5.1); Sodium 138 mmol/L (137-145); Total Protein 7.3 g/dL (6.3-8.2)
[2021-08-18 10:49] LABS: Creatine Kinase 48 U/L (30-135); Magnesium 1.6 mg/dL (1.6-2.3)
[2021-08-18 10:59] LABS: NT-proBNP (BNP-Adult 18+) 52 pg/mL (<125); Troponin I < 0.012 ng/mL (0.01-0.034)
[2021-08-18 11:54] LABS: COVID19 -Nasal RAPID Negative (Negative)
== END 2021-08-18 12:12 | disposition home or self-care (01) ==
PROVIDERS: Emergency Provider Emergency Medicine; PCP Family Medicine
DX: R53.83 Other fatigue (principal); R11.2 Nausea with vomiting, unspecified; R42 Dizziness and giddiness; R07.9 Chest pain, unspecified; Z20.822 Contact with and (suspected) exposure to COVID-19
CPT/HCPCS: 36415; 71045; 80053; 81003; 82550; 83690; 83735; 83880; 84484; 85025; 85379; 87635; 93005; 99284; C9803

== ENCOUNTER → 2021-09-18 10:25 | Outpatient (CLI) | payer MEDICARE, OTHER, SELFPAY ==
[2021-09-18 11:37] LABS: Hemoglobin A1C% w Est Avg Glu 6.4 % (4.0-6.0)
[2021-09-18 11:40] LABS: Alanine Aminotransferase 26 IU/L (<35); Albumin 4.4 g/dL (3.5-5.0); Albumin Globulin Ratio 1.6 (1.0-2.8); Alkaline Phosphatase 73 U/L (38-126); Aspartate Aminotransferase 32 IU/L (14-36); BUN Creatinine Ratio 17.5 (6-22); Bilirubin Total 0.9 mg/dL (0.2-1.3); Blood Urea Nitrogen 14 mg/dL (7-17); Calcium 9.7 mg/dL (8.4-10.2); Carbon Dioxide 28 mmol/L (22-32); Chloride 103 mmol/L (98-107); Cholesterol 176 mg/dL (140-199); Estimated Glomerular Filt Rate > 60.0 mL/min (>60); Globulin 2.7 g/dL (1.7-4.1); Glucose 146 mg/dL (80-110); HDL Cholesterol 42 mg/dL (40-60); HEMOLYSIS < 15 (0-50); Potassium 4.2 mmol/L (3.4-5.1); Sodium 141 mmol/L (137-145); Total Protein 7.1 g/dL (6.3-8.2); Triglycerides 413 mg/dL (35-150); Uric Acid 2.8 mg/dL (2.5-6.2)
[2021-09-18 11:58] LABS: Free T4, Direct Thyroxine 0.66 ng/dL (0.78-2.19)
[2021-09-18 12:12] LABS: Thyroid Stimulating Hormone 2.66 uIU/mL (0.47-4.68)
== END ==
PROVIDERS: PCP Family Medicine; Referring Provider Family Medicine; Visit Provider Family Medicine
DX: E11.9 Type 2 diabetes mellitus without complications (principal); E03.9 Hypothyroidism, unspecified; E78.5 Hyperlipidemia, unspecified; I10 Essential (primary) hypertension; M10.9 Gout, unspecified
CPT/HCPCS: 36415; 80053; 80061; 83036; 84439; 84443; 84550

== ENCOUNTER → 2022-01-17 09:53 | Outpatient (CLI) | payer MEDICARE, OTHER, SELFPAY ==
[2022-01-17 11:03] LABS: Add Manual Diff / Slide Review NO; Basophils Absolute Auto 100 /uL (0-100); Eosinophils Absolute Auto 200 /uL (0-450); Eosinophils Percent Auto 2.9 % (2-4); Hematocrit 43.1 % (36-46); Hemoglobin 14.7 g/dL (12.0-16.0); Lymphocytes Absolute Auto 1900 /uL (1100-4500); Lymphocytes Percent Auto 34.7 % (25-40); Mean Corpuscular Hemoglobin 30.6 PG (26-34); Mean Corpuscular Volume 90.1 fL (80-100); Monocytes Absolute Auto 400 /uL (0-900); Monocytes Percent Auto 8.1 % (3-14); Neutrophils Absolute Auto 2900 /uL (1500-7000); Neutrophils Percent Auto 53.3 % (50-75); Platelet Count 251 X10^3/uL (150-400); Red Blood Cell Count 4.79 X10^6/uL (4.0-5.2); Red Cell Distribution Width 13.9 % (11.6-14.8); White Blood Cell Count 5.3 X10^3/uL (4.5-11.0)
[2022-01-17 11:29] LABS: Alanine Aminotransferase 27 IU/L (<35); Albumin 4.5 g/dL (3.5-5.0); Albumin Globulin Ratio 1.5 (1.0-2.8); Alkaline Phosphatase 72 U/L (38-126); Aspartate Aminotransferase 34 IU/L (14-36); BUN Creatinine Ratio 20.5 (6-22); Bilirubin Total 0.9 mg/dL (0.2-1.3); Blood Urea Nitrogen 17 mg/dL (7-17); Calcium 9.8 mg/dL (8.4-10.2); Carbon Dioxide 26 mmol/L (22-32); Chloride 104 mmol/L (98-107); Cholesterol 176 mg/dL (140-199); Estimated Glomerular Filt Rate > 60.0 mL/min (>60); Globulin 3.1 g/dL (1.7-4.1); Glucose 149 mg/dL (80-110); HDL Cholesterol 42 mg/dL (40-60); HEMOLYSIS < 15 (0-50); LDL Cholesterol Calculated 63 mg/dL (<100); Potassium 4.3 mmol/L (3.4-5.1); Sodium 139 mmol/L (137-145); Total Protein 7.6 g/dL (6.3-8.2); Triglycerides 353 mg/dL (35-150); Uric Acid 3.7 mg/dL (2.5-6.2)
[2022-01-17 11:34] LABS: Creatinine Urine Random 163.7 mg/dL
[2022-01-17 11:36] LABS: Hemoglobin A1C% w Est Avg Glu 7.1 % (4.0-6.0)
[2022-01-17 11:43] LABS: Microalbumi Creatinin Ratio Ur 15.2 ug/mg CR (<30); Microalbumin Urine Random 2.5 mg/dL (0-1.6)
[2022-01-17 11:54] LABS: Free T4, Direct Thyroxine 0.96 ng/dL (0.78-2.19)
[2022-01-17 12:08] LABS: Thyroid Stimulating Hormone 0.937 uIU/mL (0.47-4.68)
== END ==
PROVIDERS: PCP Family Medicine; Referring Provider Family Medicine; Visit Provider Family Medicine
DX: E11.9 Type 2 diabetes mellitus without complications (principal); E03.9 Hypothyroidism, unspecified; B35.1 Tinea unguium; I10 Essential (primary) hypertension; M10.9 Gout, unspecified
CPT/HCPCS: 36415; 80053; 80061; 82043; 82570; 83036; 84439; 84443; 84550; 85025

== ENCOUNTER → 2022-04-07 08:07 | Outpatient (CLI) | payer MEDICARE, OTHER, SELFPAY ==
[2022-04-07 09:05] LABS: Alanine Aminotransferase 27 IU/L (<35); Albumin 4.5 g/dL (3.5-5.0); Albumin Globulin Ratio 1.6 (1.0-2.8); Alkaline Phosphatase 75 U/L (38-126); Aspartate Aminotransferase 32 IU/L (14-36); BUN Creatinine Ratio 25.3 (6-22); Bilirubin Total 0.7 mg/dL (0.2-1.3); Blood Urea Nitrogen 22 mg/dL (7-17); Calcium 9.4 mg/dL (8.4-10.2); Carbon Dioxide 29 mmol/L (22-32); Chloride 101 mmol/L (98-107); Estimated Glomerular Filt Rate > 60 mL/min (>60); Globulin 2.8 g/dL (1.7-4.1); Glucose 141 mg/dL (80-110); HEMOLYSIS < 15 (0-50); Potassium 4.4 mmol/L (3.4-5.1); Sodium 139 mmol/L (137-145); Total Protein 7.3 g/dL (6.3-8.2)
[2022-04-07 09:06] LABS: Hemoglobin A1C% w Est Avg Glu 7.1 % (4.0-6.0)
[2022-04-07 09:18] LABS: Free T4, Direct Thyroxine 1.25 ng/dL (0.78-2.19)
[2022-04-07 09:32] LABS: Thyroid Stimulating Hormone 1.29 uIU/mL (0.47-4.68)
== END ==
PROVIDERS: PCP Family Medicine; Referring Provider Family Medicine; Visit Provider Family Medicine
DX: E11.9 Type 2 diabetes mellitus without complications (principal); E03.9 Hypothyroidism, unspecified; I10 Essential (primary) hypertension; G47.33 Obstructive sleep apnea (adult) (pediatric); G47.00 Insomnia, unspecified
CPT/HCPCS: 36415; 80053; 83036; 84439; 84443; 99213

== ENCOUNTER 2022-05-05 18:00 | Emergency (ER) | payer MEDICARE, OTHER, SELFPAY ==
[2022-05-05 18:05] VITALS: BP 179/86; PULSE 68; RESP 18; TEMP 36.7; O2SAT 98; BMI 29.2
--- NOTE | 2022-05-05 18:10 | DI.RAD.S_ITS ---
PROCEDURE: XR FOREARM RT 2V INDICATIONS: fall TECHNIQUE: 2 views of the forearm were acquired. COMPARISON: None. FINDINGS: Bones: Nondisplaced radial head fracture. Radiocapitellar and proximal radioulnar articulations remain normal. Soft tissues: There is a moderate-sized elbow joint effusion. No radiodense foreign bodies or suspicious calcifications. IMPRESSION: Nondisplaced radial head fracture and elbow joint effusion. Dictated by: Natacha Prince M.D. on 05/05/2022 at 18:52 Approved by: Natacha Prince M.D. on 05/05/2022 at 18:53
--- NOTE | 2022-05-05 18:10 | DI.RAD.S_ITS ---
PROCEDURE: XR ELBOW RT MIN 3V INDICATIONS: fall TECHNIQUE: Four views of the elbow were acquired. COMPARISON: None. FINDINGS: Bones: Nondisplaced intra-articular radial head fracture. Joint remains intact. Enthesophyte at the medial epicondyle. Mild degenerative spurring along the medial ulnohumeral joint. Soft tissues: Moderate size elbow joint effusion. No suspicious calcifications or foreign bodies. IMPRESSION: Nondisplaced intra-articular radial head fracture. Dictated by: Natacha Prince M.D. on 05/05/2022 at 18:53 Approved by: Natacha Prince M.D. on 05/05/2022 at 18:55
--- NOTE | 2022-05-05 18:28 | ED_ITS ---
HPI - Extremity Injury (Upper) <Alexi GarciaJOELLEN - Last Filed: 05/05/22 19:34> General Chief Complaint: Extremity Injury, Upper Stated Complaint: fall, right elbow pain/decreased rom Time Seen by Provider: 05/05/22 18:14 Source: patient Mode of arrival: Ambulatory History of Present Illness HPI narrative: 76-year-old female, former smoker, who presents to the emergency department with right elbow pain after being pulled over by her 8-month-old dog at approximately 10:00 a.m. today. Patient reports that she fell forward on her driveway hitting her rt elbow. Mild swelling and tenderness of right medial epicondyle. Patient does have a scrape on right facial cheek but no pupillary changes or orbital tenderness. Patient denies any loss of consciousness. Related Data Home Medications Medication Instructions Recorded Confirmed calcium citrate 200 mg 1 tab PO DIRECTED ##0 09/03/16 04/10/22 calcium-vitamin D3 6.25 mcg (250 unit) tablet (Citracal-D3 Petites) Previous Rx's Medication Instructions Recorded acetaminophen 325 mg capsule 650 mg PO QID PRN pain #60 caps 06/25/21 (Tylenol) allopurinol 300 mg tablet 300 mg PO DAILY #90 tabs 01/16/22 blood sugar diagnostic (Truetest #100 ea 01/16/22 Test Strips) cetirizine 10 mg tablet 10 mg PO DAILY PRN allergy 01/16/22 symptoms #90 tabs colchicine 0.6 mg tablet See Rx Instructions .Route 01/16/22 .COMPLEX #20 tabs esomeprazole magnesium 20 mg 20 mg PO DAILY #90 caps 01/16/22 capsule,delayed release (Nexium) fluticasone propionate 50 1 spray intranasal QDAY #15.8 mL 01/16/22 mcg/actuation nasal spray,suspension (Flonase Allergy Relief) lancets 33 gauge (BD Ultra Fine #100 ea 01/16/22 Lancets) levothyroxine 50 mcg capsule 50 mcg PO DAILY #90 caps 01/16/22 losartan 50 mg tablet See Rx Instructions .Route 01/16/22 .COMPLEX #90 tabs metoprolol succinate 100 mg See Rx Instructions .Route 01/16/22 tablet,extended release 24 hr .COMPLEX #90 tabs rosuvastatin 20 mg tablet See Rx Instructions .Route 01/16/22 .COMPLEX #90 tabs terbinafine HCl 250 mg tablet 250 mg PO DAILY #90 tabs 01/16/22 metformin 500 mg tablet,extended 500 mg PO BID #180 tabs 04/10/22 release 24 hr Allergies Allergy/AdvReac Type Severity Reaction Status Date / Time propoxyphene Allergy Intermediate Rash Verified 04/10/22 08:07 [From DARLETICIA-N] latex AdvReac Intermediate ITCHING Verified 05/05/22 18:10 Review of Systems <JOELLEN Bragg - Last Filed: 05/05/22 19:34> Review of Systems Narrative: Narrative: GENERAL: Denies chills, fatigue, fever, sweats. See HPI HEENT: Denies sinus pain, ear pain, sore throat, difficulty swallowing, dizziness. RESPIRATORY: Denies dyspnea, cough, wheezing, sputum. CARDIOVASCULAR: Denies chest pain, palpitations, edema. GASTROINTESTINAL: Denies nausea, vomiting, abdominal pain, diarrhea, constipation. : Denies dysuria, frequency, incontinence, hematuria, urinary retention, flank pain. MUSCULOSKELETAL: Denies weakness. SKIN: Endorses scrape on right facial cheek and right knee. NEUROLOGIC: Denies weakness, dizziness, headache, numbness, confusion. PSYCHIATRIC: No concerning psychosocial issues. Patient History <JOELLEN Bragg - Last Filed: 05/05/22 19:34> Medical History Abnormal Pap smear of cervix Anxiety Arthritis Chronic a-fib Chronic back pain Diverticulitis Fungal toenail infection GERD (gastroesophageal reflux disease) Gout Hyperlipidemia Hypertension Hypothyroidism Joint pain Lung cancer (~1995) Osteoarthritis Palpitations Peptic ulcer disease Pulmonary hypertension Right knee pain Sleep apnea Stomach ulcer Type 2 diabetes mellitus Surgical History Anesthesia H/O cardiac radiofrequency ablation History of appendectomy History of section (06/1981) History of hysterectomy History of removal of cyst Hx of LASIK Family History Father Cancer Mother Hypertension Stroke Brother Hypertension Brother History of emphysema Sister Cancer Family/Other Hypertension Mental health problem Social History household members: family Smoking Status: Former smoker Tobacco: How many years used: 10 quit status: has quit before alcohol intake: current substance use type: marijuana Smoking Status: Former smoker alcohol intake frequency: 0-2 drinks per day Substance Use Type: does not use Exam <JOELLEN Bragg - Last Filed: 05/05/22 19:34> Narrative Exam Narrative: Exam Narrative: GENERAL: This is a well-nourished, well-developed patient, in no acute distress HEAD: Normocephalic. No orbital tenderness. 2 cm scrape on right facial cheek. No active bleeding. EYES: Pupils equal round and reactive. Extraocular motions intact. No scleral icterus, injection or drainage. ENT: Nose without bleeding, purulent drainage. Throat without erythema, tonsillar hypertrophy or exudate. Airway patent. NECK: Trachea midline. No JVD or lymphadenopathy. Nontender. No C-spine tenderness CARDIOVASCULAR: Regular rate and rhythm without murmurs, peripheral pulses intact, cap refill <2 sec. RESPIRATORY: Breath sounds equal and clear bilaterally. No wheezes, rales, or rhonchi. No cough. No increased respiratory effort. No accessory muscle use. GASTROINTESTINAL: Abdomen soft, non-tender, nondistended without guarding or rebound. No suprapubic pain. EXTREMITIES: Neurovascularly intact. NEURO: A&O x 3. SKIN: Warm, dry. 2 cm scrape on right facial cheek and right knee Initial Vital Signs Initial Vital Signs: Vital Signs Temperature 98.1 F 05/05/22 18:05 Pulse Rate 68 05/05/22 18:05 Respiratory Rate 18 05/05/22 18:05 Blood Pressure 179/86 H 05/05/22 18:05 Pulse Oximetry 98 05/05/22 18:05 Oxygen Delivery Method 05/05/22 18:05 Reviewed Extrem Other: ELBOW: There is minimal swelling but no bruising or asymmetry. There is tenderness to palpation over the medial epicondyle. There is no specific soft tissue pain. Sensation grossly intact. Range of motion is full and without pain. Range of motion of the shoulder and wrist is intact. Patient is unable to pronate and supinate without pain. Resistive strength for flexion and extension is intact. The contralateral elbow exam is unremarkable. <Alexi Petersen DO - Last Filed: 05/05/22 19:37> Initial Vital Signs Initial Vital Signs: Vital Signs Temperature 98.1 F 05/05/22 18:05 Pulse Rate 68 05/05/22 18:05 Respiratory Rate 18 05/05/22 18:05 Blood Pressure 179/86 H 05/05/22 18:05 Pulse Oximetry 98 05/05/22 18:05 Oxygen Delivery Method 05/05/22 18:05 Procedures <JOELLEN Bragg - Last Filed: 05/05/22 19:34> Orthopedic Splinting/Casting Injury #1: Side: right Upper Extremity Injury Location: elbow Upper Extremity Immobilizer: posterior splint Other Orthopedic Equipment: other (Sling) Post splinting neuro exam: intact Post splinting vascular exam: intact Placed by: Provider Additional Comments: Patient tolerated procedure well Course <JOELLEN Bragg - Last Filed: 05/05/22 19:34> Orders Ordered: ED Orders 05/05/22 18:10 XR elbow RT min 3V Stat XR forearm RT 2V Stat Vital Signs Vital signs: Vital Signs - 8 hr 05/05/22 18:05 Temperature 98.1 F Pulse Rate 68 Respiratory Rate 18 Blood Pressure 179/86 H Pulse Oximetry 98 Oxygen Delivery Method Room Air <Alexi Petersen DO - Last Filed: 05/05/22 19:37> Orders Ordered: ED Orders 05/05/22 18:10 XR elbow RT min 3V Stat XR forearm RT 2V Stat Vital Signs Vital signs: Vital Signs - 8 hr 05/05/22 18:05 Temperature 98.1 F Pulse Rate 68 Respiratory Rate 18 Blood Pressure 179/86 H Pulse Oximetry 98 Oxygen Delivery Method Room Air MDM - Extremity Injury (Upper) <JOELLEN Bragg Last Filed: 05/05/22 19:34> Differential Diagnosis Differential diagnosis: Likely other (Fracture of elbow) Imaging Data Extremity x-ray #1: Radiologist's Impression: [address] [address] XRay Report Signed Patient: Lianet Flower MR#: [id number] : 1945 Acct:[id number] Age/Sex: 76 / F Date of Service: 05/05/22 Loc: ED Accession Number: [id number] ?? Procedure: XR forearm RT 2V Ordering Provider: Alexi Petersen D.O. PROCEDURE:? XR FOREARM RT 2V ? INDICATIONS:? fall ? TECHNIQUE:? 2 views of the forearm were acquired.? ? COMPARISON:? None. ? FINDINGS:? ? Bones:? Nondisplaced radial head fracture.? Radiocapitellar and proximal radi oulnar articulations remain normal. ? Soft tissues:? There is a moderate-sized elbow joint effusion.? No radiodense foreign bodies or suspicious calcifications. ? ? IMPRESSION:? Nondisplaced radial head fracture and elbow joint effusion. ? Dictated by: Natacha Prince M.D. on 05/05/2022 at 18:52 ? ? Approved by: Natacha Prince M.D. on 05/05/2022 at 18:53 ? Extremity x-ray #2: Radiologist's Impression: [address] [address] XRay Report Signed Patient: Lianet Flower MR#: [id number] : 1945 Acct:[id number] Age/Sex: 76 / F Date of Service: 05/05/22 Loc: ED Accession Number: [id number] ?? Procedure: XR elbow RT min 3V Ordering Provider: Alexi Petersen D.O. PROCEDURE:? XR ELBOW RT MIN 3V ? INDICATIONS:? fall ? TECHNIQUE:? Four views of the elbow were acquired.? ? COMPARISON:? None. ? FINDINGS:? ? Bones:? Nondisplaced intra-articular radial head fracture.? Joint remains intact.? Enthesophyte at the medial epicondyle.? Mild degenerative spurring along the medial ulnohumeral joint. ? Soft tissues:? Moderate size elbow joint effusion.? No suspicious calcifications or foreign bodies. ? ? IMPRESSION:? Nondisplaced intra-articular radial head fracture. ? ? Dictated by: Natacha Prince M.D. on 05/05/2022 at 18:53 ? ? Approved by: Natacha Prince M.D. on 05/05/2022 at 18:55 ? MDM Narrative Medical decision making narrative: 76-year-old female that presents emergency department with right elbow pain after being pulled over by dog. Radiologist reports a Nondisplaced radial head fracture. Patient placed in elbow splint with Orthoglass and a sling. Recommended rice and Tylenol for comfort. Discussed return precautions and plan of care with patient and daughter, who were agreeable with course of action.. Discharge Plan Departure Patient Disposition: Home Clinical Impression: Fracture of upper extremity Instructions: DI for Elbow Fracture Activity Restrictions/Additional Instructions: *You have been diagnosed with a Nondisplaced radial head fracture. I have placed you in a splint that you should wear as much as possible over the next 3 weeks. Rest (modified activity), along with ice, compression wrap/splint- immobilize as directed and elevation above heart. Tylenol for discomfort. Please follow-up with your family doctor so they are aware of your status. For worsening pain, numbness or tingling of her arm or other concerns, he may follow up with your family doctor and return to the emergency department. *What to do: *Please continue to take your regular medications as directed. [ ] New medication prescriptions sent to your pharmacy: [ ] [ ] New medication written as a paper prescription [x ] No new medications given *Please follow up with your primary care provider in 2-3 days, call for an appointment. Let them know you were seen in the Emergency Department and that we ask that you be seen in follow up. We will electronically transmit a record of today's note if your PCP is in our system *If you do not have a primary care provider please contact the [facility] Resource line at [phone]. They will ask some questions about your medical history and help get you set up with a doctor in the community. ? Return to ER if you should have any new, worsening or concerning symptoms, such as worsening pain, severe headache, confusion, chest pain, difficulty breathing, fever greater than 101 F, shaking chills, persistent vomiting to the point that you cannot drink fluids, or other new or worsening symptoms. Prescriptions: No Action calcium citrate-vitamin D3 [Citracal-D3 Petites] 950 MG/250 IU tablet 1 tab PO DIRECTED Qty: 0 allopurinol 300 mg tablet 300 mg PO DAILY Qty: 90 3RF (DME) Truetest Test Strips Strip See Rx Instructions .Route Qty: 100 5RF Rx Instructions: Use to to check her blood sugar daily cetirizine 10 mg tablet 10 mg PO DAILY PRN (Reason: allergy symptoms) Qty: 90 4RF colchicine 0.6 mg tablet See Rx Instructions .ROUTE .COMPLEX Qty: 20 0RF Dose Instruction: TAKE ONE TABLET BY MOUTH ONCE TIME PER HOUR NEEDED FOR ACUTE GOUT ATTACK. MAX OF 6 TABLETS IN ONE DAY Rx Instructions: TAKE ONE TABLET BY MOUTH ONCE TIME PER HOUR NEEDED FOR ACUTE GOUT ATTACK. MAX OF 6 TABLETS IN ONE DAY esomeprazole magnesium [Nexium] 20 mg capsule,delayed release(DR/EC) 20 mg PO DAILY Qty: 90 1RF fluticasone propionate [Flonase Allergy Relief] 50 mcg/actuation spray,suspension 1 spray Intranasal QDAY Qty: 15.8 1RF (DME) lancets [BD Ultra Fine Lancets] 33 gauge misc See Rx Instructions .Route Qty: 100 5RF Rx Instructions: Use to check blood sugar daily levothyroxine 50 mcg capsule 50 mcg PO DAILY Qty: 90 3RF losartan 50 mg tablet See Rx Instructions .ROUTE .COMPLEX Qty: 90 3RF Dose Instruction: Take 1 tablet by mouth once daily Rx Instructions: Take 1 tablet by mouth once daily metoprolol succinate 100 mg tablet extended release 24 hr See Rx Instructions .ROUTE .COMPLEX Qty: 90 3RF Dose Instruction: Take 1 tablet by mouth once daily Rx Instructions: Take 1 tablet by mouth once daily rosuvastatin 20 mg tablet See Rx Instructions .ROUTE .COMPLEX Qty: 90 3RF Dose Instruction: Take 1 tablet by mouth once daily Rx Instructions: Take 1 tablet by mouth once daily terbinafine HCl 250 mg tablet 250 mg PO DAILY Qty: 90 1RF metformin 500 mg tablet extended release 24 hr 500 mg PO BID Qty: 180 3RF acetaminophen [Tylenol] 325 mg capsule 650 mg PO QID PRN (Reason: pain) Qty: 60 0RF Referrals: Marquis Bennett DO [Primary Care Provider] - <Alexi Petersen DO - Last Filed: 05/05/22 19:37> Cosign ED Attending Cosignature Attestation: Dr Petersen Co-Sign Statement: I was available for consultation during this patient's emergency department visit. This chart is signed by myself for administrative purposes only. I did not have direct contact with this patient during this visit. They were seen independently by the APC.
[2022-05-05 19:50] VITALS: BP 131/68; PULSE 64; RESP 20; O2SAT 98
== END 2022-05-05 19:52 | disposition home or self-care (01) ==
PROVIDERS: Emergency Provider Registered Nurse; PCP Family Medicine
DX: S52.124A Nondisplaced fracture of head of right radius, initial encounter for closed fracture (principal); W18.30XA Fall on same level, unspecified, initial encounter
CPT/HCPCS: 73080; 73090; 99281; 99283

== ENCOUNTER → 2022-06-02 09:32 | Outpatient (CLI) | payer MEDICARE, OTHER, SELFPAY ==
--- NOTE | 2022-06-02 09:35 | DI.RAD.S_ITS ---
PROCEDURE: XR ELBOW RT MIN 3V INDICATIONS: Right radial head fx TECHNIQUE: 3 views of the elbow were acquired. COMPARISON: [facility], CR, XR ELBOW RT MIN 3V, 05/05/2022, 17:59. FINDINGS: Bones: The intra-articular radial head fracture is redemonstrated. Fracture fragments are in unchanged anatomic alignment. No definite callus yet visualized. Soft tissues: No elbow joint effusion. No suspicious soft tissue calcifications. IMPRESSION: Stable intra-articular radial head fracture. Dictated by: Maryann Merino M.D. on 06/02/2022 at 10:28 Approved by: Maryann Merino M.D. on 06/02/2022 at 10:29
== END ==
PROVIDERS: PCP Family Medicine; Referring Provider Family Medicine; Visit Provider Family Medicine
DX: S52.121A Displaced fracture of head of right radius, initial encounter for closed fracture (principal); X58.XXXA Exposure to other specified factors, initial encounter
CPT/HCPCS: 73080

== ENCOUNTER → 2022-08-08 08:47 | Outpatient (CLI) | payer MEDICARE, OTHER, SELFPAY ==
[2022-08-08 09:50] LABS: Add Manual Diff / Slide Review NO; Basophils Absolute Auto 0 /uL (0-100); Basophils Percent Auto 0.9 % (0-2); Eosinophils Absolute Auto 100 /uL (0-450); Eosinophils Percent Auto 2.3 % (2-4); Hematocrit 41.9 % (36-46); Hemoglobin 14.2 g/dL (12.0-16.0); Lymphocytes Absolute Auto 1500 /uL (1100-4500); Lymphocytes Percent Auto 30.5 % (25-40); Mean Corpuscular HGB Conc 33.9 % (30-36); Mean Corpuscular Hemoglobin 30.9 PG (26-34); Mean Corpuscular Volume 91.2 fL (80-100); Monocytes Absolute Auto 400 /uL (0-900); Monocytes Percent Auto 7.7 % (3-14); Neutrophils Absolute Auto 2900 /uL (1500-7000); Neutrophils Percent Auto 58.6 % (50-75); Platelet Count 238 X10^3/uL (150-400); Red Blood Cell Count 4.59 X10^6/uL (4.0-5.2); Red Cell Distribution Width 13.8 % (11.6-14.8); White Blood Cell Count 4.9 X10^3/uL (4.5-11.0)
[2022-08-08 10:05] LABS: Alanine Aminotransferase 31 IU/L (<35); Albumin 4.3 g/dL (3.5-5.0); Albumin Globulin Ratio 1.4 (1.0-2.8); Alkaline Phosphatase 66 U/L (38-126); Aspartate Aminotransferase 39 IU/L (14-36); BUN Creatinine Ratio 14.6 (6-22); Bilirubin Total 0.8 mg/dL (0.2-1.3); Blood Urea Nitrogen 12 mg/dL (7-17); Calcium 9.2 mg/dL (8.4-10.2); Carbon Dioxide 29 mmol/L (22-32); Chloride 101 mmol/L (98-107); Cholesterol 159 mg/dL (140-199); Estimated Glomerular Filt Rate > 60 mL/min (>60); Globulin 3.1 g/dL (1.7-4.1); Glucose 132 mg/dL (80-110); HDL Cholesterol 36 mg/dL (40-60); HEMOLYSIS < 15 (0-50); LDL Cholesterol Calculated 67 mg/dL (<100); Potassium 4.1 mmol/L (3.4-5.1); Sodium 140 mmol/L (137-145); Total Protein 7.4 g/dL (6.3-8.2); Triglycerides 281 mg/dL (35-150); Uric Acid 3.7 mg/dL (2.5-6.2)
[2022-08-08 10:21] LABS: Free T4, Direct Thyroxine 1.18 ng/dL (0.78-2.19)
[2022-08-08 10:35] LABS: Thyroid Stimulating Hormone 1.33 uIU/mL (0.47-4.68)
== END ==
PROVIDERS: PCP Family Medicine; Referring Provider Family Medicine; Visit Provider Family Medicine
DX: E03.9 Hypothyroidism, unspecified (principal); E11.9 Type 2 diabetes mellitus without complications; E78.5 Hyperlipidemia, unspecified; I10 Essential (primary) hypertension; M10.9 Gout, unspecified
CPT/HCPCS: 36415; 80053; 80061; 84439; 84443; 84550; 85025

== ENCOUNTER → 2022-12-11 08:47 | Outpatient (CLI) | payer MEDICARE, OTHER, SELFPAY ==
[2022-12-11 09:27] LABS: Hemoglobin A1C% w Est Avg Glu 6.7 % (4.0-6.0)
[2022-12-11 09:47] LABS: Alanine Aminotransferase 30 IU/L (<35); Albumin 4.3 g/dL (3.5-5.0); Albumin Globulin Ratio 1.7 (1.0-2.8); Alkaline Phosphatase 73 U/L (38-126); Aspartate Aminotransferase 31 IU/L (14-36); BUN Creatinine Ratio 16.3 (6-22); Bilirubin Total 0.8 mg/dL (0.2-1.3); Blood Urea Nitrogen 14 mg/dL (7-17); Calcium 9.6 mg/dL (8.4-10.2); Carbon Dioxide 28 mmol/L (22-32); Chloride 103 mmol/L (98-107); Estimated Glomerular Filt Rate > 60 mL/min (>60); Globulin 2.6 g/dL (1.7-4.1); Glucose 119 mg/dL (80-110); HEMOLYSIS < 15 (0-50); Potassium 4.3 mmol/L (3.4-5.1); Sodium 139 mmol/L (137-145); Total Protein 6.9 g/dL (6.3-8.2); Uric Acid 3.8 mg/dL (2.5-6.2)
[2022-12-11 10:00] LABS: Free T4, Direct Thyroxine 1.28 ng/dL (0.78-2.19)
[2022-12-11 10:14] LABS: Thyroid Stimulating Hormone 0.698 uIU/mL (0.47-4.68)
== END ==
PROVIDERS: PCP Family Medicine; Referring Provider Family Medicine; Visit Provider Family Medicine
DX: E11.9 Type 2 diabetes mellitus without complications (principal); E03.9 Hypothyroidism, unspecified; M1A.09X0 Idiopathic chronic gout, multiple sites, without tophus (tophi)
CPT/HCPCS: 36415; 80053; 83036; 84439; 84443; 84550

== ENCOUNTER → 2023-04-09 08:41 | Outpatient (CLI) | payer MEDICARE, OTHER, SELFPAY ==
[2023-04-09 10:17] LABS: Alanine Aminotransferase 32 IU/L (<35); Albumin 4.6 g/dL (3.5-5.0); Albumin Globulin Ratio 1.8 (1.0-2.8); Alkaline Phosphatase 73 U/L (38-126); Aspartate Aminotransferase 34 IU/L (14-36); BUN Creatinine Ratio 16.9 (6-22); Bilirubin Total 0.8 mg/dL (0.2-1.3); Blood Urea Nitrogen 14 mg/dL (7-17); Calcium 9.4 mg/dL (8.4-10.2); Carbon Dioxide 31 mmol/L (22-32); Chloride 99 mmol/L (98-107); Estimated Glomerular Filt Rate > 60 mL/min (>60); Globulin 2.6 g/dL (1.7-4.1); Glucose 137 mg/dL (80-110); HEMOLYSIS < 15 (0-50); Potassium 4.1 mmol/L (3.4-5.1); Sodium 138 mmol/L (137-145); Total Protein 7.2 g/dL (6.3-8.2); Uric Acid 3.5 mg/dL (2.5-6.2)
[2023-04-10 04:31] LABS: Labcorp Hemoglobin (Hb) A1c 6.7 % (4.8-5.6)
== END ==
PROVIDERS: PCP Family Medicine; Referring Provider Family Medicine; Visit Provider Family Medicine
DX: E78.5 Hyperlipidemia, unspecified (principal); I10 Essential (primary) hypertension; E11.9 Type 2 diabetes mellitus without complications
CPT/HCPCS: 36415; 80053; 83036; 84550

== ENCOUNTER 2023-05-09 21:00 | Emergency (ER) | payer MEDICARE, OTHER, SELFPAY ==
[2023-05-09 21:05] VITALS: BP 186/82; PULSE 66; RESP 18; TEMP 36.2; O2SAT 98; BMI 28.1
== END 2023-05-10 03:11 | disposition left against medical advice (07) ==
PROVIDERS: Emergency Provider Emergency Medicine; PCP Family Medicine
DX: R30.0 Dysuria (principal)
CPT/HCPCS: 81003; 99281

== ENCOUNTER → 2023-05-10 12:35 | Outpatient (CLI) | payer MEDICARE, OTHER, SELFPAY | PROVIDERS: PCP Family Medicine; Visit Provider Nurse Practitioner Family | DX: R10.9 Unspecified abdominal pain (principal); N94.9 Unspecified condition associated with female genital organs and menstrual cycle; R30.0 Dysuria | CPT/HCPCS: 87086; 87210 ==

== ENCOUNTER 2023-05-13 08:54 | Emergency (ER) | payer MEDICARE, OTHER, SELFPAY ==
[2023-05-13] VITALS (11 sets, daily range): BP systolic 134–149; BP diastolic 65–85; PULSE 59–66; RESP 18–30; TEMP 36.4; O2SAT 96–99; BMI 27.8
[2023-05-13 09:31] LABS: Add Manual Diff / Slide Review NO; Basophils Absolute Auto 100 /uL (0-100); Basophils Percent Auto 0.8 % (0-2); Eosinophils Absolute Auto 200 /uL (0-450); Hematocrit 42.8 % (36-46); Hemoglobin 14.6 g/dL (12.0-16.0); Lymphocytes Absolute Auto 1700 /uL (1100-4500); Lymphocytes Percent Auto 24.7 % (25-40); Mean Corpuscular Hemoglobin 30.8 PG (26-34); Mean Corpuscular Volume 90.7 fL (80-100); Monocytes Absolute Auto 500 /uL (0-900); Monocytes Percent Auto 7.7 % (3-14); Neutrophils Absolute Auto 4400 /uL (1500-7000); Neutrophils Percent Auto 63.8 % (50-75); Platelet Count 248 X10^3/uL (150-400); Red Blood Cell Count 4.72 X10^6/uL (4.0-5.2); Red Cell Distribution Width 13.7 % (11.6-14.8); White Blood Cell Count 6.9 X10^3/uL (4.5-11.0)
[2023-05-13] MEDS: SODIUM CHLORIDE 0.9% 1,000 ML 1000 ML IV (09:32)
[2023-05-13 09:42] LABS: Alanine Aminotransferase 35 IU/L (<35); Albumin 4.4 g/dL (3.5-5.0); Albumin Globulin Ratio 1.5 (1.0-2.8); Alkaline Phosphatase 71 U/L (38-126); Aspartate Aminotransferase 39 IU/L (14-36); BUN Creatinine Ratio 14.3 (6-22); Blood Urea Nitrogen 11 mg/dL (7-17); Calcium 9.1 mg/dL (8.4-10.2); Carbon Dioxide 22 mmol/L (22-32); Chloride 104 mmol/L (98-107); Estimated Glomerular Filt Rate > 60 mL/min (>60); Glucose 136 mg/dL (80-110); HEMOLYSIS 45 (0-50); Lipase 74 U/L (23-300); Potassium 4.2 mmol/L (3.4-5.1); Sodium 137 mmol/L (137-145); Total Protein 7.4 g/dL (6.3-8.2)
--- NOTE | 2023-05-13 10:04 | ED_ITS ---
HPI - Nausea/Vomiting/Diarrhea General Chief complaint: Nausea/Vomiting/Diarrhea Stated complaint: UTI, abd pain [id number], watery stool Time Seen by Provider: 05/13/23 09:54 Source: patient and family Mode of arrival: Ambulatory Limitations: no limitations History of Present Illness HPI Narrative: This is a 77-year-old female with history of hypertension, dyslipidemia, hypothyroidism, diabetes type 2, gout, sleep apnea, GERD presents with complaint of diarrhea for the past 2 weeks usually 1 or 2 times daily at the most. She states it seems to be more correlated with food but not always. She states she will get some terms of crampy abdominal pain throughout. She is not had any fevers or chills. No nausea or vomiting. She states it will be watery, she denies any black or bloody stools. She states it has been brown discoloration with bits of food. Sometimes soft but not typically formed. Patient denies any cold cough or congestion. No chest pain, no shortness of breath. She is had some dysuria but no frequency or urgency. She states she was at the walk-in clinic on Thursday had genital swab as well as urine sample. On review these are both negative for culture on urine as well as wet prep is negative. Patient states she is on metformin her dose was increased from 500 to a 1000 mg twice da kai 6 months ago, she was having diarrhea sometimes secondary to her cholecystectomy a year ago but not this frequently. She sometimes gets constipated and takes a stool softener but has not been taking it lately. She has had a prior cholecystectomy. Allergic to Darvocet. No tobacco, alcohol or illicit. Related Data Home Medications Medication Instructions Recorded Confirmed calcium citrate 200 mg 1 tab PO DIRECTED ##0 09/03/16 04/09/23 calcium-vitamin D3 6.25 mcg (250 unit) tablet (Citracal-D3 Petites) levothyroxine 50 mcg tablet 50 mcg PO 04/09/23 04/09/23 Previous Rx's Medication Instructions Recorded acetaminophen 325 mg capsule 650 mg PO QID PRN pain #60 caps 06/25/21 (Tylenol) blood sugar diagnostic (Truetest #100 ea 01/16/22 Test Strips) esomeprazole magnesium 20 mg 20 mg PO DAILY #90 caps 01/16/22 capsule,delayed release (Nexium) lancets 33 gauge (BD Ultra Fine #100 ea 01/16/22 Lancets) terbinafine HCl 250 mg tablet 250 mg PO DAILY #90 tabs 07/14/22 metronidazole 1 % topical gel 1 applic topical BEDTIME #60 grams 12/11/22 (Metrogel) allopurinol 300 mg tablet 300 mg PO DAILY #90 tabs 12/22/22 fluticasone propionate 50 1 spray intranasal QDAY #15.8 mL 12/22/22 mcg/actuation nasal spray,suspension (Flonase Allergy Relief) metoprolol succinate 100 mg See Rx Instructions .Route 12/22/22 tablet,extended release 24 hr .COMPLEX #90 tabs rosuvastatin 20 mg tablet See Rx Instructions .Route 12/22/22 .COMPLEX #90 tabs triamcinolone acetonide 0.1 % 1 applic topical BID PRN Eczema 12/22/22 topical cream #15 grams colchicine 0.6 mg tablet See Rx Instructions .Route 02/04/23 .COMPLEX #20 tabs losartan 50 mg tablet See Rx Instructions .Route 02/11/23 .COMPLEX #90 tabs cetirizine 10 mg tablet 10 mg PO DAILY PRN allergy 03/13/23 symptoms #90 tabs metformin 500 mg tablet,extended 500 mg PO BID #180 tabs 03/13/23 release 24 hr cephalexin 500 mg capsule 500 mg PO QID 5 days #20 caps 05/10/23 amoxicillin 875 mg-potassium 1 tab PO BID #20 tabs 05/13/23 clavulanate 125 mg tablet Allergies Allergy/AdvReac Type Severity Reaction Status Date / Time propoxyphene Allergy Intermediate Rash Verified 05/10/23 12:34 [From SPRING] latex AdvReac Intermediate ITCHING Verified 05/10/23 12:34 Review of Systems Review of Systems ROS Unobtainable: All systems reviewed & are unremarkable except as noted in HPI and below Patient History Medical History Abnormal Pap smear of cervix Acne rosacea Anxiety Arthritis Chronic a-fib Chronic back pain Diverticulitis Eczema Fungal toenail infection GERD (gastroesophageal reflux disease) Gout Hyperlipidemia Hypertension Hypothyroidism Joint pain Lung cancer (~1995) Osteoarthritis Palpitations Peptic ulcer disease Pulmonary hypertension Right knee pain Right radial head fracture Sleep apnea Stomach ulcer Type 2 diabetes mellitus Surgical History Anesthesia H/O cardiac radiofrequency ablation History of appendectomy History of section (06/1981) History of hysterectomy History of removal of cyst Hx of LASIK Family History Father Cancer Mother Hypertension Stroke Brother Hypertension Brother History of emphysema Sister Cancer Family/Other Hypertension Mental health problem Social History household members: family Smoking Status: Former smoker Tobacco: How many years used: 10 quit status: has quit before alcohol intake: current substance use type: marijuana Smoking Status: Former smoker alcohol intake frequency: 0-2 drinks per day Substance Use Type: does not use Exam Narrative Exam Narrative: GENERAL: Alert and oriented x three, female in mild distress HEENT: Head normocephalic, atraumatic, EOMI, pupils reactive, face symmetric, moist mucous membranes NECK: Supple, full range of motion CARDIOVASCULAR: Regular rate and rhythm without murmurs, rubs or gallops. RESPIRATORY: Breath sounds equal bilaterally, no wheezes rales or rhonchi. ABDOMEN: Soft, nontender. Normoactive bowel sounds all 4 quadrants. No guarding or rebound, rigidity, no mass. : No CVA tenderness EXTREMITIES: Normal range of motion, no clubbing or edema. Neurovascularly in tact NEUROLOGICAL: Cranial nerves II through XII grossly intact. Moving all extremities. Normal gait. SKIN: Warm, dry, no petechiae, no rashes or lesions. Initial Vital Signs Initial Vital Signs: Vital Signs Pulse Rate 66 05/13/23 09:01 Pulse Oximetry 97 05/13/23 09:01 Course Orders Ordered: ED Orders 05/13/23 10:28 Ictotest Urine Stat Urine Culture Stat Urine Culture Stat Urine Microscopic Stat Discontinued Medications Sodium Chloride (Normal Saline 0.9%) 1,000 mls @ 1,000 mls/hr IV BOLUS ONE Stop: 05/13/23 10:29 Last Infusion: 05/13/23 10:42 Dose: 0 mls/hr Documented By: Admin: 05/13/23 09:32 Dose: 1,000 mls/hr Documented By: FORD Ondansetron HCl (Ondansetron 4 Mg Odt) 4 mg PO NOW PRN PRN Reason: Nausea And Vomiting Ondansetron HCl (Ondansetron 4 Mg/2 Ml Inj) 4 mg IV NOW PRN PRN Reason: Nausea And Vomiting Vital Signs Vital signs: Vital Signs - 8 hr 05/13/23 11:30 05/13/23 11:31 05/13/23 11:31 Pulse Rate 61 61 Respiratory Rate 28 H 18 Blood Pressure 146/85 H Pulse Oximetry 99 96 MDM - Nausea/Vomiting/Diarrhea Lab Data 05/13/23 09:20 05/13/23 09:20 Labs: Lab Results 05/13/23 05/13/23 05/13/23 Range/Units 09:20 09:20 10:28 WBC 6.9 (4.5-11.0) X10^3/uL RBC 4.72 (4.0-5.2) X10^6/uL Hgb 14.6 (12.0-16.0) g/dL Hct 42.8 (36-46) % MCV 90.7 (80-100) fL MCH 30.8 (26-34) PG MCHC 34.0 (30-36) % RDW 13.7 (11.6-14.8) % Plt Count 248 (150-400) X10^3/uL Neut % (Auto) 63.8 (50-75) % Lymph % (Auto) 24.7 L (25-40) % [place] % (Auto) 7.7 (3-14) % Eos % (Auto) 3.0 (2-4) % Baso % (Auto) 0.8 (0-2) % Neut # (Auto) 4400 (7816-9273) /uL Lymph # (Auto) 1700 (3534-3547) /uL [place] # (Auto) 500 (0-900) /uL Eos # (Auto) 200 (0-450) /uL Baso # (Auto) 100 (0-100) /uL Sodium 137 (137-145) mmol/L Potassium 4.2 (3.4-5.1) mmol/L Chloride 104 (98-107) mmol/L Carbon Dioxide 22 (22-32) mmol/L BUN 11 (7-17) mg/dL Creatinine 0.77 (0.52-1.04) mg/dL Estimated GFR > 60 (>60) mL/min BUN/Creatinine Ratio 14.3 (6-22) Glucose 136 H (80-110) mg/dL Calcium 9.1 (8.4-10.2) mg/dL Total Bilirubin 1.0 (0.2-1.3) mg/dL AST 39 H (14-36) IU/L ALT 35 H (<35) IU/L Alkaline Phosphatase 71 (38-126) U/L Total Protein 7.4 (6.3-8.2) g/dL Albumin 4.4 (3.5-5.0) g/dL Globulin 3.0 (1.7-4.1) g/dL Albumin/Globulin Ratio 1.5 (1.0-2.8) Lipase 74 (23-300) U/L Ur Bilirubin Confirm (Negative) Urine RBC 0-1/hpf (0-5/HPF) Urine WBC 1-5/hpf (0-5/HPF) Ur Squamous Epith Cells 5-10 /hpf H (0-5/HPF) Urine Bacteria Few (2-10) H (None) Ur Culture Indicated? Specimen cultured 05/13/23 Range/Units 10:28 WBC (4.5-11.0) X10^3/uL RBC (4.0-5.2) X10^6/uL Hgb (12.0-16.0) g/dL Hct (36-46) % MCV (80-100) fL MCH (26-34) PG MCHC (30-36) % RDW (11.6-14.8) % Plt Count (150-400) X10^3/uL Neut % (Auto) (50-75) % Lymph % (Auto) (25-40) % [place] % (Auto) (3-14) % Eos % (Auto) (2-4) % Baso % (Auto) (0-2) % Neut # (Auto) (4405-7023) /uL Lymph # (Auto) (2739-1471) /uL [place] # (Auto) (0-900) /uL Eos # (Auto) (0-450) /uL Baso # (Auto) (0-100) /uL Sodium (137-145) mmol/L Potassium (3.4-5.1) mmol/L Chloride (98-107) mmol/L Carbon Dioxide (22-32) mmol/L BUN (7-17) mg/dL Creatinine (0.52-1.04) mg/dL Estimated GFR (>60) mL/min BUN/Creatinine Ratio (6-22) Glucose (80-110) mg/dL Calcium (8.4-10.2) mg/dL Total Bilirubin (0.2-1.3) mg/dL AST (14-36) IU/L ALT (<35) IU/L Alkaline Phosphatase (38-126) U/L Total Protein (6.3-8.2) g/dL Albumin (3.5-5.0) g/dL Globulin (1.7-4.1) g/dL Albumin/Globulin Ratio (1.0-2.8) Lipase (23-300) U/L Ur Bilirubin Confirm Negative (Negative) Urine RBC (0-5/HPF) Urine WBC (0-5/HPF) Ur Squamous Epith Cells (0-5/HPF) Urine Bacteria (None) Ur Culture Indicated? Urine Dip Bedside Urine Glucose Negative Bedside Urine Bilirubin + 1 Bedside Urine Ketone - Negative Urine Specific [place] 1.010 Bedside Urine Occult Blood - Negative Bedside Urine pH 6.0 Bedside Urine Protein - Negative Bedside Urine Urobilinogen +/- 1mg Bedside Urine Nitrite + Positive Bedside Urine Leukocytes + [address] scan - abdomen/pelvis: Radiologist's Impression: Close Abdomen/Pelvis CT (Signed) [facility] - 05/13/23 [place] [address] CT Scan Report Signed Patient: Lianet Flower MR#: [id number] : 1945 Acct:[id number] Age/Sex: 77 / F Date of Service: 05/13/23 Loc: ED Accession Number: [id number] ?? Procedure: CT abdomen pelvis w con Ordering Provider: Britney Reyes D.O. PROCEDURE:? CT ABDOMEN PELVIS W CON ? INDICATIONS:? diarrhea,abd pain x 3 weeks, hx ryan 1yr ago ? TECHNIQUE:? After the administration of oral and IV contrast, axial sections were acquired from the lung bases to the pubic symphysis.? Coronal and sagittal reformats were performed.? For radiation dose reduction, the following was used:? automated exposure control, adjustment of mA and/or kV according to patient size. ? COMPARISON:? [facility], CT, CT ABDOMEN PELVIS W CON, 05/25/2021, 23:29. ? FINDINGS:? Image quality:? Excellent.? ? Lung bases:? Unremarkable.? Small hiatal hernia.? There is mild thickening at the GE junction. Heart:? No significant findings. ? ? ABDOMEN: Liver:? Normal in size.? Mild hepatic steatosis. Gallbladder:? Surgically absent.? Biliary ducts:? No intrahepatic or extrahepatic biliary dilation.? ? Pancreas:? Unremarkable.? ? Spleen:? Unremarkable.? ? Adrenal Glands:? Unremarkable.? ? Kidneys and Ureters:? Unremarkable.? ? ? Stomach and Bowel:? Gastric antral thickening.? There is thickening of proximal duodenum. ?More distally, small bowel loops and colon are normal in caliber.? Extensive descending and sigmoid diverticulosis.? No acute diverticulitis.? There is mild diffuse thickening of the distal sigmoid colon. Peritoneum:? No abnormal intraperitoneal fluid.? No free air.? ? Ventral Wall: ? No hernia.? Abdominal Nodes:? No retroperitoneal or mesenteric adenopathy by size criteria.? Vessels:? Aorta and inferior vena cava are normal in size.? ? PELVIS: Pelvic Organs:? Unremarkable.? ? Bladder:? Unremarkable.? ? Pelvic Nodes: No enlarged lymph nodes.? Miscellaneous: No inguinal hernias are seen. ? ? ? Bones:? Unremarkable.? IMPRESSION:? ? 1. Gastric antral thickening and thickening of proximal duodenum consistent with gastritis/duodenitis. ? 2. Diverticulosis.? No CT findings to suggest acute diverticulitis. ? 3. Mild thickening of the distal sigmoid colon.? Differential diagnoses are colitis, chronic inflammatory change related to diverticular disease or artifact from lack of contrast distension.? Recommend clinical correlation and follow-up. ? 4. Hepatic steatosis. ? 5. Small hiatal hernia.? There is mild thickening at the GE junction.? Consider esophagram or EGD for follow-up.? Dictated by: Kevon Reynolds M.D. on 05/13/2023 at 10:54 ? ? Approved by: Kevon Reynolds M.D. on 05/13/2023 at 11:00?? ECG Data Attestation: I personally reviewed and interpreted this ECG as follows: Prior ECG tracings: available for review Interpretation: Sinus rhythm rate of 62 KS 180 QRS 84 QTC 458. No acute ST elevation. Patient does have inverted T-waves V1 through V 3, patient has prior from 08/18/2021 appears similar. MDM Narrative Medical decision making narrative: 77-year-old female with abdominal pain and persistent diarrhea although 1-2 times daily for the past 3 weeks. Patient has some potential causes such as daily metformin although she is been on her new as dose for the past 6 months, she is had a cholecystectomy but this was a year ago. Patient's CBC shows no acute changes, CMP shows a glucose of 136 AST ALT are 07/25/2035, lipase negative bilirubin appropriate. Patient did have a urine culture from the which was negative as well as a wet prep. Patient gave another urine sample here, does show nitrites, patient does have squamous epithelials but few bacteria. Patient does have some dysuria will treat for UTI. I do not think this is the source of her diarrhea. Patient encouraged to give stool sample here in the department. Patient was unable to but recommended to followup and have gi panel if persisting diarrhea. CT abdomen pelvis shows gastric antral thickening of the proximal duodenum she has diverticulosis but no signs of diverticulitis and there is diffuse thickenin g of the distal sigmoid. No other acute changes there is some hepatic steatosis and a small hiatal hernia patient recommended for EGD for follow-up. Patient notes last EGD colonoscopy were approximately 8 years ago. Discharge Plan Departure Patient Disposition: Home Clinical Impression: Diarrhea, Acute UTI Activity Restrictions/Additional Instructions: Your workup today does show UTI, I would have you take antibiotics until completed. Please follow-up with your physician for recheck if your diarrhea is persisting. They may want to get a stool sample. There is some thickening of the duodenum as well as the sigmoid colon. You are also noted to have a small hiatal hernia and it is recommended he follow up for EGD and colonoscopy for evaluation. You also have a little bit of hepatic steatosis on your imaging. Share this information with your physician. Take antibiotics until completed. Prescription was sent to Please return for fevers, new or worsening abdominal back or flank pain, persistent vomiting, persistent diarrhea, black or bloody stools or other new or concerning changes. Prescriptions: New amoxicillin-pot clavulanate 875-125 mg tablet 1 tab PO BID Qty: 20 0RF No Action calcium citrate-vitamin D3 [Citracal-D3 Petites] 950 MG/250 IU tablet 1 tab PO DIRECTED Qty: 0 terbinafine HCl 250 mg tablet 250 mg PO DAILY Qty: 90 3RF allopurinol 300 mg tablet 300 mg PO DAILY Qty: 90 3RF fluticasone propionate [Flonase Allergy Relief] 50 mcg/actuation spray,suspension 1 spray Intranasal QDAY Qty: 15.8 1RF metoprolol succinate 100 mg tablet extended release 24 hr See Rx Instructions .ROUTE .COMPLEX Qty: 90 3RF Dose Instruction: Take 1 tablet by mouth once daily Rx Instructions: Take 1 tablet by mouth once daily rosuvastatin 20 mg tablet See Rx Instructions .ROUTE .COMPLEX Qty: 90 3RF Dose Instruction: Take 1 tablet by mouth once daily Rx Instructions: Take 1 tablet by mouth once daily triamcinolone acetonide 0.1 % cream 1 applic topical BID PRN (Reason: Eczema) Qty: 15 0RF colchicine 0.6 mg tablet See Rx Instructions .ROUTE .COMPLEX Qty: 20 0RF Dose Instruction: TAKE ONE TABLET BY MOUTH ONCE TIME PER HOUR NEEDED FOR ACUTE GOUT ATTACK. MAX OF 6 TABLETS IN ONE DAY Rx Instructions: TAKE ONE TABLET BY MOUTH ONCE TIME PER HOUR NEEDED FOR ACUTE GOUT ATTACK. MAX OF 6 TABLETS IN ONE DAY losartan 50 mg tablet See Rx Instructions .ROUTE .COMPLEX Qty: 90 2RF Dose Instruction: Take 1 tablet by mouth once daily Rx Instructions: Take 1 tablet by mouth once daily cetirizine 10 mg tablet 10 mg PO DAILY PRN (Reason: allergy symptoms) Qty: 90 4RF metformin 500 mg tablet extended release 24 hr 500 mg PO BID Qty: 180 3RF cephalexin 500 mg capsule 500 mg PO QID 5 Days Qty: 20 0RF (DME) Truetest Test Strips Strip See Rx Instructions .Route Qty: 100 5RF Rx Instructions: Use to to check her blood sugar daily esomeprazole magnesium [Nexium] 20 mg capsule,delayed release(DR/EC) 20 mg PO DAILY Qty: 90 1RF (DME) lancets [BD Ultra Fine Lancets] 33 gauge misc See Rx Instructions .Route Qty: 100 5RF Rx Instructions: Use to check blood sugar daily levothyroxine 50 mcg tablet 50 mcg PO Patient Comments: TAKE ONE TABLET BY MOUTH ONE TIME DAILY metronidazole [Metrogel] 1 % gel 1 applic topical BEDTIME Qty: 60 1RF Rx Instructions: Apply sparingly acetaminophen [Tylenol] 325 mg capsule 650 mg PO QID PRN (Reason: pain) Qty: 60 0RF Referrals: Yareli Mae MD [Physician] - Marquis Bennett DO [Primary Care Provider] - Stand Alone Forms: Patient Portal/API
--- NOTE | 2023-05-13 10:19 | DI.CT.S_ITS ---
PROCEDURE: CT ABDOMEN PELVIS W CON INDICATIONS: diarrhea,abd pain x 3 weeks, hx ryan 1yr ago TECHNIQUE: After the administration of oral and IV contrast, axial sections were acquired from the lung bases to the pubic symphysis. Coronal and sagittal reformats were performed. For radiation dose reduction, the following was used: automated exposure control, adjustment of mA and/or kV according to patient size. COMPARISON: [facility], CT, CT ABDOMEN PELVIS W CON, 05/25/2021, 23:29. FINDINGS: Image quality: Excellent. Lung bases: Unremarkable. Small hiatal hernia. There is mild thickening at the GE junction. Heart: No significant findings. ABDOMEN: Liver: Normal in size. Mild hepatic steatosis. Gallbladder: Surgically absent. Biliary ducts: No intrahepatic or extrahepatic biliary dilation. Pancreas: Unremarkable. Spleen: Unremarkable. Adrenal Glands: Unremarkable. Kidneys and Ureters: Unremarkable. Stomach and Bowel: Gastric antral thickening. There is thickening of proximal duodenum. More distally, small bowel loops and colon are normal in caliber. Extensive descending and sigmoid diverticulosis. No acute diverticulitis. There is mild diffuse thickening of the distal sigmoid colon. Peritoneum: No abnormal intraperitoneal fluid. No free air. Ventral Wall: No hernia. Abdominal Nodes: No retroperitoneal or mesenteric adenopathy by size criteria. Vessels: Aorta and inferior vena cava are normal in size. PELVIS: Pelvic Organs: Unremarkable. Bladder: Unremarkable. Pelvic Nodes: No enlarged lymph nodes. Miscellaneous: No inguinal hernias are seen. Bones: Unremarkable. IMPRESSION: 1. Gastric antral thickening and thickening of proximal duodenum consistent with gastritis/duodenitis. 2. Diverticulosis. No CT findings to suggest acute diverticulitis. 3. Mild thickening of the distal sigmoid colon. Differential diagnoses are colitis, chronic inflammatory change related to diverticular disease or artifact from lack of contrast distension. Recommend clinical correlation and follow-up. 4. Hepatic steatosis. 5. Small hiatal hernia. There is mild thickening at the GE junction. Consider esophagram or EGD for follow-up. Dictated by: Kevon Reynolds M.D. on 05/13/2023 at 10:54 Approved by: Kevon Reynolds M.D. on 05/13/2023 at 11:00
[2023-05-13 10:44] LABS: Ictotest Urine Negative (Negative)
[2023-05-13 11:02] LABS: RBC Urine 0-1/HPF (0-5/HPF); WBC Urine 1-5/HPF (0-5/HPF)
[2023-05-13 11:03] LABS: Culture Indicated Urine Specimen Cultured; Squamous Epithelial Cell Urine 5-10 /HPF (0-5/HPF)
[2023-05-13 11:04] LABS: Bacteria Urine Few (2-10)
== END 2023-05-13 11:45 | disposition home or self-care (01) ==
PROVIDERS: Emergency Provider Emergency Medicine; PCP Family Medicine
DX: R19.7 Diarrhea, unspecified (principal); N39.0 Urinary tract infection, site not specified; R10.9 Unspecified abdominal pain; R11.2 Nausea with vomiting, unspecified
CPT/HCPCS: 36415; 74177; 80053; 81003; 81015; 83690; 85025; 87086; 93005; 96360; 99284; Q9967

== ENCOUNTER → 2023-06-11 16:44 | Outpatient (CLI) | payer MEDICARE, OTHER, SELFPAY ==
[2023-06-11 19:58] LABS: Appearance Urine UA CLEAR; Bilirubin Urine UA NEGATIVE (NEGATIVE); Color Urine UA YELLOW; Glucose Urine UA NEGATIVE (Negative); Ketones Urine UA NEGATIVE (NEGATIVE); Leukocyte Esterase Urine UA NEGATIVE (NEGATIVE); Nitrite Urine UA NEGATIVE (Negative); Occult Blood Urine UA NEGATIVE (Negative); Protein Urine UA NEGATIVE (Negative); Specific Gravity Urine UA <=1.005 (1.000-1.035); Urobilinogen Urine UA 0.2 E.U./dL (0.2)
[2023-06-11 20:17] LABS: Bacteria Urine None Seen; Culture Indicated Urine Cult Not Indicated; RBC Urine None Seen (0-5/HPF); Squamous Epithelial Cell Urine None Seen (0-5/HPF); WBC Urine None Seen (0-5/HPF)
== END ==
PROVIDERS: PCP Family Medicine; Visit Provider Family Medicine
DX: R30.0 Dysuria (principal); R35.0 Frequency of micturition
CPT/HCPCS: 81001

== ENCOUNTER → 2023-06-22 12:17 | Outpatient (CLI) | payer MEDICARE, OTHER, SELFPAY ==
[2023-06-22 13:00] LABS: Add Manual Diff / Slide Review NO; Basophils Absolute Auto 100 /uL (0-100); Eosinophils Absolute Auto 200 /uL (0-450); Eosinophils Percent Auto 3.6 % (2-4); Hematocrit 40.7 % (36-46); Hemoglobin 13.8 g/dL (12.0-16.0); Lymphocytes Absolute Auto 1800 /uL (1100-4500); Lymphocytes Percent Auto 29.9 % (25-40); Mean Corpuscular HGB Conc 33.9 % (30-36); Mean Corpuscular Hemoglobin 30.9 PG (26-34); Mean Corpuscular Volume 91.2 fL (80-100); Monocytes Absolute Auto 500 /uL (0-900); Monocytes Percent Auto 7.6 % (3-14); Neutrophils Absolute Auto 3500 /uL (1500-7000); Neutrophils Percent Auto 57.9 % (50-75); Platelet Count 255 X10^3/uL (150-400); Red Blood Cell Count 4.46 X10^6/uL (4.0-5.2); Red Cell Distribution Width 13.5 % (11.6-14.8)
[2023-06-22 13:05] LABS: Hemoglobin A1C% w Est Avg Glu 6.2 % (4.0-6.0)
[2023-06-22 13:26] LABS: Alanine Aminotransferase 44 IU/L (<35); Albumin 4.3 g/dL (3.5-5.0); Albumin Globulin Ratio 1.7 (1.0-2.8); Alkaline Phosphatase 73 U/L (38-126); Aspartate Aminotransferase 53 IU/L (14-36); BUN Creatinine Ratio 16.7 (6-22); Bilirubin Total 0.6 mg/dL (0.2-1.3); Blood Urea Nitrogen 13 mg/dL (7-17); Calcium 9.7 mg/dL (8.4-10.2); Carbon Dioxide 28 mmol/L (22-32); Chloride 103 mmol/L (98-107); Estimated Glomerular Filt Rate > 60 mL/min (>60); Globulin 2.5 g/dL (1.7-4.1); Glucose 100 mg/dL (80-110); HEMOLYSIS < 15 (0-50); Potassium 4.4 mmol/L (3.4-5.1); Sodium 138 mmol/L (137-145); Total Protein 6.8 g/dL (6.3-8.2)
== END ==
PROVIDERS: PCP Family Medicine; Referring Provider Family Medicine; Visit Provider Family Medicine
DX: E11.9 Type 2 diabetes mellitus without complications (principal); E78.5 Hyperlipidemia, unspecified; I10 Essential (primary) hypertension
CPT/HCPCS: 36415; 80053; 83036; 85025

== ENCOUNTER → 2023-12-13 11:36 | Outpatient (CLI) | payer MEDICARE, OTHER, SELFPAY | PROVIDERS: PCP Family Medicine; Visit Provider Physician Assistant Surgical | DX: R10.9 Unspecified abdominal pain (principal) | CPT/HCPCS: 87086 ==

== ENCOUNTER → 2023-12-21 14:15 | Outpatient (CLI) | payer MEDICARE, OTHER, SELFPAY ==
[2023-12-21 14:53] LABS: Hemoglobin A1C% w Est Avg Glu 6.5 % (4.0-6.0)
[2023-12-21 15:13] LABS: Alanine Aminotransferase 30 IU/L (<35); Albumin 4.4 g/dL (3.5-5.0); Albumin Globulin Ratio 1.6 (1.0-2.8); Alkaline Phosphatase 66 U/L (38-126); Aspartate Aminotransferase 31 IU/L (14-36); BUN Creatinine Ratio 16.9 (6-22); Bilirubin Total 0.8 mg/dL (0.2-1.3); Blood Urea Nitrogen 14 mg/dL (7-17); Calcium 9.9 mg/dL (8.4-10.2); Carbon Dioxide 26 mmol/L (22-32); Chloride 102 mmol/L (98-107); Estimated Glomerular Filt Rate > 60 mL/min (>60); Globulin 2.7 g/dL (1.7-4.1); Glucose 107 mg/dL (80-110); HEMOLYSIS < 15 (0-50); Potassium 4.1 mmol/L (3.4-5.1); Sodium 138 mmol/L (137-145); Total Protein 7.1 g/dL (6.3-8.2); Uric Acid 3.3 mg/dL (2.5-6.2)
[2023-12-21 15:25] LABS: Free T4, Direct Thyroxine 1.03 ng/dL (0.78-2.19)
[2023-12-21 15:39] LABS: Thyroid Stimulating Hormone 1.35 uIU/mL (0.47-4.68)
[2023-12-21 18:39] LABS: Microalbumin Urine Random < 0.6 mg/dL (0-1.6)
== END ==
PROVIDERS: PCP Family Medicine; Referring Provider Family Medicine; Visit Provider Family Medicine
DX: E11.9 Type 2 diabetes mellitus without complications (principal); E78.5 Hyperlipidemia, unspecified; I10 Essential (primary) hypertension; E03.9 Hypothyroidism, unspecified; M10.9 Gout, unspecified
CPT/HCPCS: 36415; 80053; 82043; 82570; 83036; 84439; 84443; 84550

== ENCOUNTER → 2024-05-09 08:11 | Outpatient (CLI) | payer MEDICARE, OTHER, SELFPAY | PROVIDERS: PCP Family Medicine; Visit Provider Family Medicine | DX: N39.0 Urinary tract infection, site not specified (principal) | CPT/HCPCS: 87077; 87086 ==

== ENCOUNTER → 2025-05-08 09:48 | Outpatient (CLI) | payer MEDICARE, OTHER, SELFPAY ==
[2025-05-08 11:06] LABS: Add Manual Diff / Slide Review NO; Hematocrit 42.3 % (36-46); Hemoglobin 14.4 g/dL (12.0-16.0); Lymphocytes Absolute Auto 1600 /uL (1100-4500); Mean Corpuscular HGB Conc 34.0 % (30-36); Mean Corpuscular Hemoglobin 31.2 PG (26-34); Mean Corpuscular Volume 91.7 fL (80-100); Platelet Count 231 X10^3/uL (150-400)
[2025-05-08 11:13] LABS: Hemoglobin A1C% w Est Avg Glu 6.4 % (4.0-6.0)
[2025-05-08 11:33] LABS: Alanine Aminotransferase 28 IU/L (<35); Albumin 4.6 g/dL (3.5-5.0); Albumin Globulin Ratio 1.9 (1.0-2.8); Alkaline Phosphatase 65 U/L (38-126); Blood Urea Nitrogen 14 mg/dL (7-17); Calcium 9.9 mg/dL (8.4-10.2); Carbon Dioxide 27 mmol/L (22-32); Chloride 102 mmol/L (98-107); Estimated Glomerular Filt Rate > 60 mL/min (>60); Globulin 2.4 g/dL (1.7-4.1); Glucose 135 mg/dL (70-99); HEMOLYSIS < 15 (0-50); Potassium 4.1 mmol/L (3.4-5.1); Sodium 138 mmol/L (137-145); Total Protein 7.0 g/dL (6.3-8.2); Uric Acid 3.2 mg/dL (2.5-6.2)
[2025-05-08 11:47] LABS: Free T4, Direct Thyroxine 0.93 ng/dL (0.78-2.19)
[2025-05-08 12:01] LABS: Thyroid Stimulating Hormone 1.57 uIU/mL (0.47-4.68)
== END ==
PROVIDERS: PCP Family Medicine; Referring Provider Family Medicine; Visit Provider Family Medicine
DX: M1A.09X0 Idiopathic chronic gout, multiple sites, without tophus (tophi) (principal); E11.9 Type 2 diabetes mellitus without complications; E78.2 Mixed hyperlipidemia; I10 Essential (primary) hypertension; E03.9 Hypothyroidism, unspecified
CPT/HCPCS: 36415; 80053; 83036; 84439; 84443; 84550; 85025

== ENCOUNTER 2025-09-17 10:58 | Emergency (ER) | payer MEDICARE, OTHER, SELFPAY ==
[2025-09-17 11:11] VITALS: BP 153/80; PULSE 57; RESP 16; TEMP 36.6; O2SAT 99; BMI 27.4
--- NOTE | 2025-09-17 11:16 | EKG_ITS ---
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
--- NOTE | 2025-09-17 11:25 | DI.CT.S_ITS ---
PROCEDURE: CT ABDOMEN PELVIS W CON INDICATIONS: left lower quad pain TECHNIQUE: After the administration of intravenous contrast, axial sections acquired from the lung bases to the pubic symphysis. Coronal and sagittal reformats were performed. For radiation dose reduction, the following was used: automated exposure control, adjustment of mA and/or kV according to patient size. COMPARISON: [facility], CT, CT ABDOMEN PELVIS W CON, 05/13/2023, 10:44. FINDINGS: Lower Chest: No significant findings. ABDOMEN: Liver: No solid mass. Gallbladder: Cholecystectomy. Biliary ducts: No biliary dilation. Pancreas: No ductal dilation. Spleen: Size is within normal limits. Adrenal Glands: No adrenal nodules. Kidneys and Ureters: No hydronephrosis. No solid mass. No complex renal cystic lesion which requires follow up. Stomach and Bowel: Multiple diverticula arise from sigmoid colon. Focal wall thickening and inflammatory changes noted in the proximal sigmoid. No abscess or free air. There is an in capsulated piece of adjacent mesenteric fat with surrounding inflammation as well raising the possibility of epiploic appendagitis as well Normal appendix identified. No evidence of appendicitis. Peritoneum: No abnormal intraperitoneal fluid. No free air. Ventral Wall: No significant ventral hernia. Abdominal Nodes: No retroperitoneal or mesenteric adenopathy by size criteria. Vessels: Aorta and inferior vena cava are normal in size. PELVIS: Pelvic Organs: Hysterectomy. Bladder: No bladder wall thickening, accounting for underdistention. Pelvic Nodes: No enlarged lymph nodes. Miscellaneous: No inguinal hernias are seen. Bones: Degenerative disc disease and arthropathy noted in lower lumbar spine. IMPRESSION: Proximal sigmoid diverticulitis without abscess, perforation or bowel obstruction. Approved by: Cj Mckinley M.D. on 09/17/2025 at 11:34
--- NOTE | 2025-09-17 11:27 | ED.ABDPAIN ---
HPI - Abdominal Pain General Chief Complaint: Abdominal Pain Stated Complaint: Lower abd pain; tearing feeling Time Seen by Provider: 09/17/25 11:22 Source: patient and family Mode of arrival: Ambulatory History of Present Illness HPI narrative: Patient is a 80-year-old female history of hysterectomy cholecystectomy appendectomy, diabetes, hyperlipidemia, chronic atrial fibrillation, presenting today with left lower quadrant pain. She has had pain ongoing for the last 2-3 days. He feels like he has been constipated no nausea no vomiting. No back pain. It is not on her right side at all. She thinks it is from moving the vacuum however it is continuing and Tylenol is not helping. Related Data Home Medications ?Medication ?Instructions ?Recorded ?Confirmed calcium 200 mg (as 1 tab PO DIRECTED ##0 09/03/16 09/17/25 citrate)-vitamin D3 6.25 mcg (250 unit) tablet (Citracal-D3 Petites) Previous Rx's ?Medication ?Instructions ?Recorded acetaminophen 325 mg capsule 650 mg (2 x 325 mg) PO QID PRN 06/25/21 (Tylenol) pain #60 caps blood sugar diagnostic (Truetest #100 ea 05/18/23 Test Strips) lancets 33 gauge (BD Ultra Fine #100 ea 05/18/23 Lancets) esomeprazole magnesium 20 mg 20 mg PO Q OTHER DAY #90 caps 05/13/24 capsule,delayed release (Nexium) triamcinolone acetonide 0.1 % 1 applic topical BID PRN Eczema 05/31/24 topical cream #15 grams allopurinol 300 mg tablet 300 mg PO DAILY #90 tabs 05/22/25 levothyroxine 50 mcg tablet 50 mcg PO DAILY #90 tabs 06/02/25 sucralfate 1 gram tablet 1 g PO BID #60 tabs 06/08/25 losartan 50 mg tablet 50 mg PO DAILY #90 tabs 07/24/25 cetirizine 10 mg tablet 10 mg PO DAILY PRN for allergies 07/25/25 #90 tabs colchicine 0.6 mg tablet 0.6 mg PO Q6H PRN for gout pain 07/25/25 #20 tabs fluticasone propionate 50 1 spray intranasal DAILY #16 grams 07/25/25 mcg/actuation nasal spray,suspension metformin 500 mg tablet,extended 500 mg PO BID #180 tabs 07/25/25 release 24 hr metoprolol succinate 100 mg 100 mg PO DAILY #90 tabs 07/25/25 tablet,extended release 24 hr rosuvastatin 20 mg tablet 20 mg PO DAILY #90 tabs 07/25/25 amoxicillin 875 mg-potassium 1 tab PO BID #20 tabs 09/17/25 clavulanate 125 mg tablet Allergies Allergy/AdvReac Type Severity Reaction Status Date / Time propoxyphene (From Allergy Intermediate Rash Verified 09/17/25 11:09 DARVOCET-N) latex AdvReac Intermediate ITCHING Verified 09/17/25 11:09 Patient History Medical History Preventative health care UTI (urinary tract infection) Acne rosacea Right radial head fracture Eczema Joint pain Diverticulitis Stomach ulcer Arthritis Palpitations Anxiety Chronic a-fib Hypothyroidism Gout Fungal toenail infection Right knee pain Osteoarthritis Sleep apnea Chronic back pain Abnormal Pap smear of cervix Peptic ulcer disease GERD (gastroesophageal reflux disease) Pulmonary hypertension Hypertension Type 2 diabetes mellitus Hyperlipidemia Surgical History H/O cardiac radiofrequency ablation Anesthesia Hx of LASIK History of appendectomy History of removal of cyst History of hysterectomy History of section (06/1981) Family History Father Cancer Mother Hypertension Stroke Brother Hypertension Brother History of emphysema Sister Cancer Family/Other Hypertension Mental health problem Social History household members: family Smoking Status: Former smoker Tobacco: How many years used: 10 quit status: has quit before alcohol intake: current substance use type: marijuana Smoking Status: Former smoker tobacco type: cigarettes alcohol intake frequency: 0-2 drinks per day Exam Initial Vital Signs Initial Vital Signs: Vital Signs Temperature 98 F 09/17/25 11:11 Pulse Rate 57 L 09/17/25 11:11 Respiratory Rate 16 09/17/25 11:11 Blood Pressure 153/80 H 09/17/25 11:11 Pulse Oximetry 99 09/17/25 11:11 Oxygen Delivery Method Room Air 09/17/25 11:11 GENERAL: Alert pleasant very well-appearing 72-year-old female and in no acute distress. HEENT: Head atraumatic,EOMI, pupils reactive, face symmetric, moist mucous membranes CARDIOVASCULAR: Regular rate and rhythm without murmurs, rubs or gallops. RESPIRATORY: Breath sounds equal bilaterally, no wheezes rales or rhonchi. ABDOMEN: Soft, tender left lower quadrant pain without guarding or rebound : No CVA tenderness EXTREMITIES: Normal range of motion, no clubbing or edema. Neurovascularly intact NEUROLOGICAL: Alert and oriented x4.Normal gait and speech. SKIN: Warm, dry, no laceration, no petechiae, no rashes or lesions. Course Orders Ordered: ED Orders 09/17/25 11:16 EKG-12 Lead Stat 09/17/25 11:25 CT abdomen pelvis w con Stat Complete Blood Count AUTO DIFF Stat Comprehensive Metabolic Panel Stat Lipase Stat Discontinued Medications Ketorolac Tromethamine (Ketorolac 30 Mg/Ml Vial) 15 mg IV NOW ONE Stop: 09/17/25 11:26 Last Admin: 09/17/25 11:44 Dose: 15 mg Documented By: RLS Ondansetron HCl (Ondansetron 4 Mg/2 Ml Inj) 4 mg IV NOW PRN PRN Reason: Nausea And Vomiting Ondansetron HCl (Ondansetron 4 Mg Odt) 4 mg PO NOW PRN PRN Reason: Nausea And Vomiting Vital Signs Vital signs: Vital Signs - 8 hr 09/17/25 11:11 09/17/25 13:12 09/17/25 13:13 Temperature 98 F 97.4 F L Pulse Rate 57 L 62 Respiratory Rate 16 18 Blood Pressure 153/80 H 156/79 H Pulse Oximetry 99 97 Oxygen Delivery Method Room Air Room Air MDM - Abdominal Pain Lab Data 09/17/25 11:25 09/17/25 11:25 Labs: Lab Results 09/17/25 Range/Units 11: WBC 7.3 (4.5-11.0) X10^3/uL RBC 5.12 (4.0-5.2) X10^6/uL Hgb 15.6 (12.0-16.0) g/dL Hct 45.8 (36-46) % MCV 89.4 (80-100) fL MCH 30.4 (26-34) PG MCHC 34.0 (30-36) % RDW 14.4 (11.6-14.8) % Plt Count 241 (150-400) X10^3/uL Neut % (Auto) 68.1 (50-75) % Lymph % (Auto) 23.9 L (25-40) % [place] % (Auto) 5.6 (3-14) % Eos % (Auto) 1.8 L (2-4) % Baso % (Auto) 0.6 (0-2) % Neut # (Auto) 4900 (7801-5635) /uL Lymph # (Auto) 1700 (7875-5488) /uL [place] # (Auto) 400 (0-900) /uL Eos # (Auto) 100 (0-450) /uL Baso # (Auto) 0 (0-100) /uL Sodium 140 (137-145) mmol/L Potassium 3.9 (3.4-5.1) mmol/L Chloride 102 (98-107) mmol/L Carbon Dioxide 27 (22-32) mmol/L BUN 13 (7-17) mg/dL Creatinine 0.97 (0.52-1.04) mg/dL Estimated GFR 60 (>60) mL/min BUN/Creatinine Ratio 13.4 (6-22) Glucose 205 H (70-99) mg/dL Calcium 10.5 H (8.4-10.2) mg/dL Total Bilirubin 1.5 H (0.2-1.3) mg/dL AST 61 H (14-36) IU/L ALT 47 H (<35) IU/L Alkaline Phosphatase 86 (38-126) U/L Total Protein 8.0 (6.3-8.2) g/dL Albumin 4.9 (3.5-5.0) g/dL Globulin 3.1 (1.7-4.1) g/dL Albumin/Globulin Ratio 1.6 (1.0-2.8) Lipase 36 (23-300) U/L MDM Narrative Medical decision making narrative: MDM CC: Abdominal pain Complicating co-morbidities: Chronic atrial fibrillation, hypertension hypothyroid prediabetes Data collected from: Patient and daughter Differential considered: Diverticulitis nephrolithiasis constipation Exam documented above, pertinent findings include: Tender left lower quadrant no guarding no rebound no peritoneal signs Lab Test results independently reviewed as above. Pertinent findings: CBC no leukocytosis no anemia CMP no electrolyte abnormalities no EMMIE glucose is 205 Calcium slightly elevated 10.5 Bilirubin 1.5 AST 61 ALT 47 previously bilirubin was 1.7 lipase 36 Independently reviewed EKG as above Sinus rhythm no ischemia Imaging studies independently reviewed: CT abdomen pelvis shows uncomplicated diverticulitis Consultations: [ ] Treatments: Augmentin Re-evaluations: Patient overall appears well nontoxic happy and smiling Discussion: Patient 80 [facility] quadrant pain ongoing for the last couple of days. It sounds like she has actually had large quantities of both pumpkin seeds and sunflower seeds recently. She is found to have uncomplicated diverticulitis confirmed on CT blood work is overall reassuring. She has had diverticulitis in the past. Daughter at bedside both understand treatment plan and diet recommendations. She was on a couple rounds of amoxicillin for prior tooth infections but has not been on any floor about 1 month. Due to some [place] and need for compliance we will go ahead and start her on Augmentin. Discharge Plan Departure Patient Disposition: Home Clinical Impression: Diverticulitis Instructions: DI for Diverticulitis Activity Restrictions/Additional Instructions: *You have been diagnosed with diverticulitis *What to do: At this time recommend a low-fiber diet only while this is healing. Then you may resume high-fiber including beans and fruits. Limit your nuts and seeds *Continue to take medications as directed Augmentin 875 twice daily for 10 days Tylenol Motrin as needed for pain *Follow up with your primary care provider in 2-3 days or call [phone] *Return to ER if you should have increasing pain bloody stool fevers vomiting or any new, worsening or concerning symptoms Prescriptions: New amoxicillin-pot clavulanate 875-125 mg tablet 1 tab PO BID Qty: 20 0RF No Action calcium citrate-vitamin D3 [Citracal-D3 Petites] 950 MG/250 IU tablet 1 tab PO DIRECTED Qty: 0 esomeprazole magnesium [Nexium] 20 mg capsule,delayed release(DR/EC) 20 mg PO Q OTHER DAY Qty: 90 1RF Rx Instructions: start taking every other day triamcinolone acetonide 0.1 % cream 1 applic topical BID PRN (Reason: Eczema) Qty: 15 2RF allopurinol 300 mg tablet 300 mg PO DAILY Qty: 90 3RF levothyroxine 50 mcg tablet 50 mcg PO DAILY Qty: 90 2RF sucralfate 1 gram tablet 1 g PO BID Qty: 60 0RF losartan 50 mg tablet 50 mg PO DAILY Qty: 90 3RF cetirizine 10 mg tablet 10 mg PO DAILY PRN (Reason: for allergies) Qty: 90 3RF colchicine 0.6 mg tablet 0.6 mg PO Q6H PRN (Reason: for gout pain) Qty: 20 2RF fluticasone propionate 50 mcg/actuation spray,suspension 1 spray intranasal DAILY Qty: 16 2RF metoprolol succinate 100 mg tablet extended release 24 hr 100 mg PO DAILY Qty: 90 3RF metformin 500 mg tablet extended release 24 hr 500 mg PO BID Qty: 180 3RF rosuvastatin 20 mg tablet 20 mg PO DAILY Qty: 90 3RF (DME) lancets [BD Ultra Fine Lancets] 33 gauge misc See Rx Instructions .Route Qty: 100 5RF Rx Instructions: Use to check blood sugar daily (DME) Truetest Test Strips Strip See Rx Instructions .Route Qty: 100 5RF Rx Instructions: Use to to check her blood sugar daily acetaminophen [Tylenol] 325 mg capsule 650 mg PO QID PRN (Reason: pain) Qty: 60 0RF Referrals: Marquis Bennett DO [Primary Care Provider, Family Practice] Stand Alone Forms: Patient Portal/API
[2025-09-17 11:36] LABS: Add Manual Diff / Slide Review NO; Hematocrit 45.8 % (36-46); Hemoglobin 15.6 g/dL (12.0-16.0); Lymphocytes Absolute Auto 1700 /uL (1100-4500); Mean Corpuscular HGB Conc 34.0 % (30-36); Mean Corpuscular Hemoglobin 30.4 PG (26-34); Mean Corpuscular Volume 89.4 fL (80-100); Platelet Count 241 X10^3/uL (150-400)
[2025-09-17] MEDS: KETOROLAC 30 MG/ML VIAL 15 MG IV (11:44)
[2025-09-17 11:45] LABS: Alanine Aminotransferase 47 IU/L (<35); Albumin 4.9 g/dL (3.5-5.0); Albumin Globulin Ratio 1.6 (1.0-2.8); Alkaline Phosphatase 86 U/L (38-126); Blood Urea Nitrogen 13 mg/dL (7-17); Calcium 10.5 mg/dL (8.4-10.2); Carbon Dioxide 27 mmol/L (22-32); Chloride 102 mmol/L (98-107); Estimated Glomerular Filt Rate 60 mL/min (>60); Globulin 3.1 g/dL (1.7-4.1); Glucose 205 mg/dL (70-99); HEMOLYSIS 20 (0-50); Lipase 36 U/L (23-300); Potassium 3.9 mmol/L (3.4-5.1); Sodium 140 mmol/L (137-145); Total Protein 8.0 g/dL (6.3-8.2)
[2025-09-17 13:12] VITALS: BP 156/79; PULSE 62; RESP 18; O2SAT 97
[2025-09-17 13:13] VITALS: TEMP 36.3
== END 2025-09-17 13:21 | disposition home or self-care (01) ==
PROVIDERS: Emergency Provider Emergency Medicine; PCP Family Medicine
DX: K57.32 Diverticulitis of large intestine without perforation or abscess without bleeding (principal); I48.20 Chronic atrial fibrillation, unspecified
CPT/HCPCS: 36415; 74177; 80053; 83690; 85025; 93005; 96374; 99284; J1885; Q9967